=== PATIENT | male | born 1975 | race Caucasian/White ===

== ENCOUNTER → 2021-02-25 09:20 | Outpatient (BNVA) | payer OTHER, SELFPAY | PROVIDERS: Visit Provider Orthopaedic Surgery | DX: M25.571 Pain in right ankle and joints of right foot (principal) | CPT/HCPCS: 99202 ==

== ENCOUNTER 2022-12-10 13:12 | Outpatient (REF) | payer OTHER, SELFPAY ==
--- NOTE | ~2022-12-10 | XR_ITS ---
EXAMINATION: XR FOOT, RIGHT CLINICAL INFORMATION: Acute foot pain. COMPARISON: Right foot radiographs dated 12/27/2007. TECHNIQUE: AP, lateral, and oblique views of the right foot. FINDINGS: There is no acute fracture or dislocation. The tarsal bones are normally aligned. There is a small retrocalcaneal spur. Mild soft tissue swelling. XR/XR foot RT min 3V IMPRESSION: Mild soft tissue swelling and small degenerative retrocalcaneal spur. No acute fracture.
== END 2022-12-10 13:13 | disposition home or self-care (01) ==
LOC: HO.XRAY 13:12
PROVIDERS: PCP Student in an Organized Health Care Education/Training Program; Visit Provider Student in an Organized Health Care Education/Training Program
DX: M79.671 Pain in right foot (principal)
CPT/HCPCS: 73630

== ENCOUNTER → 2022-12-30 10:50 | Outpatient (BNVA) | payer OTHER, SELFPAY | PROVIDERS: PCP Student in an Organized Health Care Education/Training Program; Visit Provider Student in an Organized Health Care Education/Training Program | DX: M10.9 Gout, unspecified (principal) | CPT/HCPCS: 99202 ==

== ENCOUNTER 2022-12-30 12:05 | Outpatient (REF) | payer OTHER, SELFPAY ==
[2022-12-30 13:30] LABS: MANUAL DIFF FLAG NO
[2022-12-30 13:39] LABS: Basophils Percent Auto 0.7 % (0-2); Eosinophils Absolute Auto 0.1 X10*3/uL (0.0-0.4); Eosinophils Percent Auto 1.7 % (0-4); Hematocrit 44.7 % (42.0-52.0); Hemoglobin 15.1 g/dl (14.0-18.0); Imm Gran Abs Auto 0.01 X10*3/uL (0.00-0.03); Imm Gran Pct Auto 0.2 % (0.0-0.4); Lymphocytes Absolute Auto 1.9 X10*3/uL (1.2-4.9); Lymphocytes Percent Auto 33.3 % (20-40); Mean Corpuscular HGB Conc 33.8 g/dl (31.0-36.0); Mean Corpuscular Hemoglobin 28.7 pg (27.0-33.0); Mean Corpuscular Volume 84.8 fL (80.0-98.0); Mean Platelet Volume 10.8 fL (9.4-12.4); Monocytes Absolute Auto 0.7 X10*3/uL (0.1-1.2); Monocytes Percent Auto 11.2 % (2-11); Neutrophils Absolute Auto 3.1 x10*3/uL (2.0-8.3); Neutrophils Percent Auto 52.9 % (45-73); Platelet Count 261 X10*3/uL (160-400); Red Blood Count 5.27 X10*6/uL (4.60-5.80); Red Cell Distribution Width 12.3 % (11.0-16.0); White Blood Count 5.8 X10*3/uL (4.8-10.8)
[2022-12-30 13:50] LABS: Alanine Aminotransferase 31 U/L (0-40); Albumin Level 4.8 g/dL (3.5-5.0); Alkaline Phosphatase 65 U/L (39-117); Anion Gap 15 (12-20); Aspartate Amino Transferase 24 U/L (5-37); Bilirubin Total 0.7 mg/dL (0.0-1.0); Blood Urea Nitrogen 13 mg/dL (9-16); C Reactive Protein 0.38 mg/dL (< or = 0.50); Calcium 9.8 mg/dL (8.4-10.2); Carbon Dioxide 26 mmol/L (22-29); Chloride 104 mmol/L (96-108); Estimated Glomerular Filt Rate > 60; Glucose Random 95 mg/dL (60-115); Potassium 4.5 mmol/L (3.3-5.1); Sodium 140 mmol/L (135-145); Total Protein 7.4 g/dL (6.5-8.0); Uric Acid 6.4 mg/dL (3.4-7.0)
[2022-12-30 14:07] LABS: Appearance Urine Clear; Color Urine Yellow; Glucose Urine UA Negative (Negative); Leukocyte Esterase Urine Negative (Negative); Nitrite Urine Negative (Negative); PH 5.5 (5.0-9.0); Urine Blood Negative (Negative); Urine Ketones Negative (Negative); Urine Protein Negative (Neg-Trace)
[2022-12-30 14:16] LABS: Bacteria Urine None Seen (None Seen); Hyaline Casts Urine 0-2 /LPF (0-2); RBC Urine 0-2 /HPF (0-2); Squamous Epithelial Cell Urine 0-2 /HPF (0-2); WBC Urine 0-5 /HPF (0-5)
[2022-12-30 14:20] LABS: Erythrocyte Sedimentation Rate 13 MM/HR (0-15)
== END 2022-12-30 12:06 | disposition home or self-care (01) ==
LOC: HO.10HDL 12:05
PROVIDERS: Visit Provider Student in an Organized Health Care Education/Training Program
DX: M10.9 Gout, unspecified (principal)
CPT/HCPCS: 36415; 80053; 81001; 84550; 85025; 85652; 86140

== ENCOUNTER → 2023-02-23 08:08 | Outpatient (BNVA) | payer OTHER, SELFPAY | PROVIDERS: PCP Student in an Organized Health Care Education/Training Program; Visit Provider Student in an Organized Health Care Education/Training Program | DX: M10.9 Gout, unspecified (principal); Z79.899 Other long term (current) drug therapy | CPT/HCPCS: 99212 ==

== ENCOUNTER 2023-02-23 09:13 | Outpatient (REF) | payer OTHER, SELFPAY ==
[2023-02-23 11:00] LABS: Alanine Aminotransferase 29 U/L (0-40); Albumin Level 4.4 g/dL (3.5-5.0); Alkaline Phosphatase 51 U/L (39-117); Anion Gap 10 (12-20); Aspartate Amino Transferase 20 U/L (5-37); Bilirubin Total 0.5 mg/dL (0.0-1.0); Blood Urea Nitrogen 19 mg/dL (9-16); Calcium 9.5 mg/dL (8.4-10.2); Carbon Dioxide 27 mmol/L (22-29); Chloride 109 mmol/L (96-108); Estimated Glomerular Filt Rate > 60; Glucose Random 99 mg/dL (60-115); Potassium 4.9 mmol/L (3.3-5.1); Sodium 141 mmol/L (135-145); Total Protein 6.8 g/dL (6.5-8.0); Uric Acid 7.8 mg/dL (3.4-7.0)
== END 2023-02-23 09:14 | disposition home or self-care (01) ==
LOC: HO.10HDL 09:13
PROVIDERS: Visit Provider Student in an Organized Health Care Education/Training Program
DX: M10.9 Gout, unspecified (principal)
CPT/HCPCS: 36415; 80053; 84550

== ENCOUNTER 2023-06-01 11:37 | Outpatient (REF) | payer OTHER, SELFPAY ==
[2023-06-01 13:16] LABS: MANUAL DIFF FLAG NO
[2023-06-01 13:19] LABS: Basophils Percent Auto 0.5 % (0-2); Eosinophils Absolute Auto 0.1 X10*3/uL (0.0-0.4); Eosinophils Percent Auto 1.4 % (0-4); Hematocrit 47.3 % (42.0-52.0); Hemoglobin 16.3 g/dl (14.0-18.0); Imm Gran Abs Auto 0.02 X10*3/uL (0.00-0.03); Imm Gran Pct Auto 0.3 % (0.0-0.4); Lymphocytes Absolute Auto 2.5 X10*3/uL (1.2-4.9); Mean Corpuscular HGB Conc 34.5 g/dl (31.0-36.0); Mean Corpuscular Hemoglobin 29.6 pg (27.0-33.0); Mean Platelet Volume 10.6 fL (9.4-12.4); Monocytes Absolute Auto 0.6 X10*3/uL (0.1-1.2); Monocytes Percent Auto 9.2 % (2-11); Neutrophils Absolute Auto 3.2 x10*3/uL (2.0-8.3); Neutrophils Percent Auto 49.6 % (45-73); Platelet Count 240 X10*3/uL (160-400); Red Cell Distribution Width 12.2 % (11.0-16.0); White Blood Count 6.4 X10*3/uL (4.8-10.8)
[2023-06-01 14:00] LABS: Alanine Aminotransferase 30 U/L (0-40); Albumin Level 4.7 g/dL (3.5-5.0); Alkaline Phosphatase 58 U/L (39-117); Anion Gap 11 (12-20); Aspartate Amino Transferase 21 U/L (5-37); Bilirubin Total 0.5 mg/dL (0.0-1.0); Blood Urea Nitrogen 18 mg/dL (9-16); Calcium 9.5 mg/dL (8.4-10.2); Carbon Dioxide 26 mmol/L (22-29); Chloride 108 mmol/L (96-108); Estimated Glomerular Filt Rate > 60; Glucose Random 97 mg/dL (60-115); Potassium 4.5 mmol/L (3.3-5.1); Sodium 140 mmol/L (135-145); Total Protein 7.6 g/dL (6.5-8.0); Uric Acid 6.3 mg/dL (3.4-7.0)
== END 2023-06-01 11:38 | disposition home or self-care (01) ==
LOC: HO.10HDL 11:37
PROVIDERS: Visit Provider Student in an Organized Health Care Education/Training Program
DX: M10.9 Gout, unspecified (principal)
CPT/HCPCS: 36415; 80053; 84550; 85025

== ENCOUNTER 2023-06-02 08:51 | Outpatient (AMB) | payer OTHER, SELFPAY ==
--- NOTE | 2023-06-02 08:53 | MHC.OFFVIS ---
Intake Vital Signs 06/02/23 08:54 Height 5 ft 7 in Weight 214 lb 15.211 oz BMI 33.7 BP 122/74 Blood Pressure Location Rt brachial Position Sitting Pulse 61 Pulse Source Pulse Oximeter Temp 97.4 F Pulse Oximetry (%) 95 Intake Visit Reasons: Gout Intake Note: Pt seen today for gout follow up. Denies flare ups Atm Servicer Required: No Accompanied by: Self / Same As Patient Allergies No Known Allergies Allergy (Verified 06/02/23 08:56) Medication List - Last Reconciled 06/02/23 by Arturo Tarango MD allopurinol 200 mg (2 x 100 mg) PO DAILY colchicine (gout) Take 1 tab twice daily for 1 week then 1 tab daily HPI HPI Comments History of Present Illness Details 48-year-old male with gout returns for follow-up. Doing much better overall. Denies any gout flare-ups over the last 3 months. On allopurinol 200 mg daily and colchicine daily. States that he gets some pain in his right big toe worse with walking. Without swelling. Initial History: This is a 47-year-old male who presents for evaluation of gout. Condition started 3-4 years ago when patient noticed swelling of his right big toe. He would have 2. Attacks per year usually treated with a course of ibuprofen or prednisone. Over the last 2 months however he has had a persistent attack affecting his right ankle near the right medial malleolus as well as the right big toe. He received 2 courses of prednisone and multiple courses of ibuprofen without relief. He also gets intermittent pain and swelling of his right elbow. He has been on allopurinol 100 mg daily for years but was not taking it regularly. Over the last 3-4 months he has been taking allopurinol regularly. Denies any history of kidney stones. No known family history of gout. [facility] Medical History Carpal tunnel syndrome of left wrist Gout Surgical History History of carpal tunnel surgery Family History Mother No problems noted. Father No problems noted. 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[facility] [place], [place] Reports arthralgias Physical Exam Vital Signs: Last Vital Signs Temp 97.4 F 06/02/23 08:54 Pulse 61 06/02/23 08:54 BP 122/74 06/02/23 08:54 Pulse Ox 95 06/02/23 08:54 BMI result Body Mass Index 33.7 Const General: cooperative, healthy appearing and comfortable Nutritional Appearance: obese Orientation/consciousness: patient oriented x3 Limitations: no limitations HEENT Head: Yes normocephalic and Yes atraumatic Resp Effort & Inspection: normal respiratory effort and able to speak in complete sentences Cardio Rate: regular rate Rhythm: regular rhythm Neuro General: patient oriented x3 Extrem Other: Reduced right wrist extension, history of fracture years ago No active synovitis today Early bunion right foot, mildly tender to palpation Assessment & Plan Assessment & Plan (1) Gout: Code(s): M10.9 - Gout, unspecified Plan: This is a 48-year-old male with gout returns for follow-up. Doing well overall without gout flares. On allopurinol 200 mg daily and colchicine 0.6 mg daily. Uric acid 6.3, still not at target Increase allopurinol to 300 mg daily. Continue colchicine daily for 1 more month then colchicine 0.6 mg every other day Labs before next visit in 3 months (2) Bunion of great toe of right foot: Code(s): M21.611 - Bunion of right foot Plan: Worse with walking. I suggested that patient try wearing more comfortable shoes. If no improvement follow-up with Podiatry Plan I spent 26 minutes reviewing patient's chart, evaluating patient, ordering diagnostic workup, counseling patient and documenting in the chart Orders: Orders Comprehensive Met. Panel 3 Months M10.9 - Gout, unspecified Uric Acid 3 Months M10.9 - Gout, unspecified Complete Blood Count Auto Diff 3 Months M10.9 - Gout, unspecified Medications: New allopurinol 300 mg PO DAILY 90 tabs 1RF Discontinued allopurinol Discontinued Reason: Doctor's Order 200 mg (2 x 100 mg) PO DAILY 180 tabs 1RF Coding Level of Care Code Est Pt Level 4 (11370) Diagnoses Gout M10.9 Bunion of great toe of right foot M21.611
[2023-06-02 08:54] VITALS: BP 122/74; PULSE 61; TEMP 36.3; O2SAT 95; BMI 33.7
== END 2023-06-02 09:13 | disposition home or self-care (01) ==
PROVIDERS: PCP Student in an Organized Health Care Education/Training Program; Visit Provider Student in an Organized Health Care Education/Training Program
DX: M10.9 Gout, unspecified (principal); M21.611 Bunion of right foot
CPT/HCPCS: 99214

== ENCOUNTER → 2023-06-02 08:51 | Outpatient (BNVA) | payer OTHER, SELFPAY | PROVIDERS: PCP Student in an Organized Health Care Education/Training Program; Visit Provider Student in an Organized Health Care Education/Training Program | DX: M10.9 Gout, unspecified (principal); M21.611 Bunion of right foot; Z79.899 Other long term (current) drug therapy | CPT/HCPCS: 99212 ==

== ENCOUNTER 2023-09-03 10:35 | Outpatient (REF) | payer MEDICAID, SELFPAY ==
[2023-09-03 13:27] LABS: MANUAL DIFF FLAG NO
[2023-09-03 13:34] LABS: Basophils Percent Auto 0.6 % (0-2); Eosinophils Absolute Auto 0.1 X10*3/uL (0.0-0.4); Eosinophils Percent Auto 1.4 % (0-4); Hematocrit 45.6 % (42.0-52.0); Hemoglobin 15.9 g/dl (14.0-18.0); Imm Gran Abs Auto 0.02 X10*3/uL (0.00-0.03); Imm Gran Pct Auto 0.4 % (0.0-0.4); Lymphocytes Absolute Auto 2.1 X10*3/uL (1.2-4.9); Mean Corpuscular HGB Conc 34.9 g/dl (31.0-36.0); Mean Corpuscular Hemoglobin 29.5 pg (27.0-33.0); Mean Corpuscular Volume 84.6 fL (80.0-98.0); Monocytes Absolute Auto 0.5 X10*3/uL (0.1-1.2); Neutrophils Absolute Auto 2.3 x10*3/uL (2.0-8.3); Neutrophils Percent Auto 45.6 % (45-73); Platelet Count 261 X10*3/uL (160-400); Red Blood Count 5.39 X10*6/uL (4.60-5.80); White Blood Count 5.1 X10*3/uL (4.8-10.8)
[2023-09-03 14:11] LABS: Alanine Aminotransferase 43 U/L (0-40); Albumin Level 4.8 g/dL (3.5-5.0); Alkaline Phosphatase 56 U/L (39-117); Anion Gap 13 (12-20); Aspartate Amino Transferase 25 U/L (5-37); Bilirubin Total 0.6 mg/dL (0.0-1.0); Blood Urea Nitrogen 16 mg/dL (9-16); Calcium 9.7 mg/dL (8.4-10.2); Carbon Dioxide 26 mmol/L (22-29); Chloride 107 mmol/L (96-108); Estimated Glomerular Filt Rate > 60; Glucose Random 101 mg/dL (60-115); Potassium 4.5 mmol/L (3.3-5.1); Sodium 141 mmol/L (135-145); Total Protein 7.8 g/dL (6.5-8.0); Uric Acid 6.1 mg/dL (3.4-7.0)
== END 2023-09-03 10:36 | disposition home or self-care (01) ==
LOC: HO.10HDL 10:35
PROVIDERS: Visit Provider Student in an Organized Health Care Education/Training Program
DX: M10.9 Gout, unspecified (principal)
CPT/HCPCS: 36415; 80053; 84550; 85025

== ENCOUNTER 2023-09-06 09:13 | Outpatient (AMB) | payer MEDICAID, SELFPAY ==
[2023-09-06 09:15] VITALS: BP 128/86; PULSE 81; BMI 34.1
--- NOTE | 2023-09-06 09:15 | MHC.OFFVIS ---
Intake Vital Signs 09/06/23 09:15 Height 5 ft 7 in Weight 217 lb 13.067 oz BMI 34.1 BP 128/86 Blood Pressure Location Rt brachial Position Sitting Pulse 81 Pulse Source Pulse Oximeter Intake Visit Reasons: Gout Intake Note: Patient presents today for gout follow up. Reports increasing allopurinol to 300 mg daily decreasing colchicine to 0.6 mg every other day. Quality Facilitator Required: No Accompanied by: Self / Same As Patient Allergies No Known Allergies Allergy (Verified 09/06/23 09:16) Medication List - Last Reconciled 09/06/23 by Arturo Tarango MD allopurinol 300 mg PO DAILY colchicine Take 1 tab twice daily for 1 week then 1 tab daily HPI HPI Comments History of Present Illness Details 48-year-old male with gout returns for follow-up. Doing well overall, states that he has intermittent pain and dull ache in the bottom of his left foot. Not all the time. States that he wakes up in the morning with bilateral wrist stiffness, he puts his hands under cold water and it resolved in a few minutes. Has not had any gout flare-ups. He is on allopurinol 300 mg daily and colchicine every other day Initial History: This is a 47-year-old male who presents for evaluation of gout. Condition started 3-4 years ago when patient noticed swelling of his right big toe. He would have 2. Attacks per year usually treated with a course of ibuprofen or prednisone. Over the last 2 months however he has had a persistent attack affecting his right ankle near the right medial malleolus as well as the right big toe. He received 2 courses of prednisone and multiple courses of ibuprofen without relief. He also gets intermittent pain and swelling of his right elbow. He has been on allopurinol 100 mg daily for years but was not taking it regularly. Over the last 3-4 months he has been taking allopurinol regularly. Denies any history of kidney stones. No known family history of gout. [facility] Medical History Carpal tunnel syndrome of left wrist Gout Surgical History History of carpal tunnel surgery Family History Mother No problems noted. Father No problems noted. 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[facility] [employer] [facility] [place] Reports arthralgias Physical Exam Vital Signs: Last Vital Signs Pulse 81 09/06/23 09:15 BP 128/86 09/06/23 09:15 BMI result Body Mass Index 34.1 Const General: cooperative, healthy appearing and comfortable Nutritional Appearance: obese Orientation/consciousness: patient oriented x3 Limitations: no limitations HEENT Head: Yes normocephalic and Yes atraumatic Resp Effort & Inspection: normal respiratory effort and able to speak in complete sentences Cardio Rate: regular rate Rhythm: regular rhythm Neuro General: patient oriented x3 Extrem Other: Reduced right wrist extension, history of fracture years ago No active synovitis today Early bunion right foot, mildly tender to palpation Assessment & Plan Assessment & Plan (1) Gout: Code(s): M10.9 - Gout, unspecified Qualifiers: Gout site: multiple sites Gout etiology: idiopathic Chronicity: chronic Presence of tophus: without tophus Qualified Code(s): M1A.09X0 - Idiopathic chronic gout, multiple sites, without tophus (tophi) Plan: This is a 48-year-old male with gout returns for follow-up. Doing well overall without gout flares. On allopurinol 300 mg daily and colchicine 0.6 mg daily. Uric acid 6.1, almost at target. Patient has been on colchicine for more than 6 months now without gout flare-ups. Will discontinue colchicine Continue allopurinol 300 mg daily Labs before next visit in 3 months (2) Transaminitis: Code(s): R74.01 - Elevation of levels of liver transaminase levels Plan: Mild elevation of liver enzymes, unclear cause. Patient denies any recent illnesses, new medications or alcohol use. Will monitor. Plan I spent 26 minutes reviewing patient's chart, evaluating patient, ordering diagnostic workup, counseling patient and documenting in the chart Orders: Orders Comprehensive Met. Panel 3 Months M10.9 - Gout, unspecified Uric Acid 3 Months M10.9 - Gout, unspecified Medications: Discontinued colchicine Discontinued Reason: Doctor's Order Take 1 tab twice daily for 1 week then 1 tab daily 90 tabs 1RF Coding Level of Care Code Est Pt Level 4 (75378) Diagnoses Idiopathic chronic gout of multiple sites without tophus M1A.09X0 Gout site: multiple sites Gout etiology: idiopathic Chronicity: chronic Presence of tophus: without tophus Transaminitis R74.01
== END 2023-09-06 09:27 | disposition home or self-care (01) ==
PROVIDERS: PCP Student in an Organized Health Care Education/Training Program; Visit Provider Student in an Organized Health Care Education/Training Program
DX: M1A.09X0 Idiopathic chronic gout, multiple sites, without tophus (tophi) (principal); R74.01 Elevation of levels of liver transaminase levels
CPT/HCPCS: 99214

== ENCOUNTER → 2023-09-06 09:13 | Outpatient (BNVA) | payer OTHER, SELFPAY | PROVIDERS: PCP Student in an Organized Health Care Education/Training Program; Visit Provider Student in an Organized Health Care Education/Training Program | DX: M1A.09X0 Idiopathic chronic gout, multiple sites, without tophus (tophi) (principal); R74.01 Elevation of levels of liver transaminase levels | CPT/HCPCS: 99212 ==

== ENCOUNTER 2023-12-02 13:35 | Outpatient (REF) | payer MEDICAID, SELFPAY ==
[2023-12-02 15:04] LABS: Alanine Aminotransferase 36 U/L (0-40); Albumin Level 4.8 g/dL (3.5-5.0); Alkaline Phosphatase 63 U/L (39-117); Anion Gap 10 (12-20); Aspartate Amino Transferase 20 U/L (5-37); Bilirubin Total 0.5 mg/dL (0.0-1.0); Blood Urea Nitrogen 13 mg/dL (9-16); Calcium 9.8 mg/dL (8.4-10.2); Carbon Dioxide 28 mmol/L (22-29); Chloride 105 mmol/L (96-108); Estimated Glomerular Filt Rate > 60; Glucose Random 92 mg/dL (60-115); Potassium 4.4 mmol/L (3.3-5.1); Sodium 139 mmol/L (135-145); Total Protein 7.8 g/dL (6.5-8.0); Uric Acid 5.5 mg/dL (3.4-7.0)
== END 2023-12-02 13:36 | disposition home or self-care (01) ==
LOC: HO.LAB 13:35
PROVIDERS: PCP Student in an Organized Health Care Education/Training Program; Visit Provider Student in an Organized Health Care Education/Training Program
DX: M10.9 Gout, unspecified (principal)
CPT/HCPCS: 36415; 80053; 84550

== ENCOUNTER 2023-12-06 08:51 | Outpatient (AMB) | payer MEDICAID, SELFPAY ==
--- NOTE | 2023-12-06 08:57 | A.OFFVIS_ITS ---
Intake Vital Signs 12/06/23 09:02 Height 5 ft 7 in Weight 212 lb 8.41 oz BMI 33.3 BP 134/72 Blood Pressure Location Rt brachial Position Sitting Pulse 73 Pulse Source Pulse Oximeter Temp 97.8 F Temp Source Skin Pulse Oximetry (%) 96 Oxygen Delivery Method Room Air Intake Visit Reasons: Gout Intake Note: Patient last seen 09/06/23 presents today for follow up and test results. Reports left foot pain x 1 wk, has had prior episodes of pain that come and go. Furnishings Conservator Required: No Accompanied by: Self / Same As Patient Allergies No Known Allergies Allergy (Verified 12/06/23 08:57) Medication List - Last Reconciled 12/06/23 by Arturo Tarango MD allopurinol 300 mg PO DAILY HPI HPI Comments History of Present Illness Details 48-year-old male with gout returns for f ollow-up. Doing well overall, states that he gets intermittent dull achy pain in his left foot, starting from the 3rd toe going all the way to the 5th toe and the outer aspect of the foot as well as the bottom of the foot. Denied any swelling or redness. States that these episodes happen once every 1 or 2 months and last about 1 week. He would take colchicine for 2-3 days to prevent a potential gout flare-up. He is taking allopurinol 200 mg daily. States that recently has noticed that his left thumb is numb. Has history of carpal tunnel syndrome s/p release on the right hand. Is wondering whether he has it on the left Initial History: This is a 47-year-old male who presents for evaluation of gout. Condition started 3-4 years ago when patient noticed swelling of his right big toe. He would have 2. Attacks per year usually treated with a course of ibuprofen or prednisone. Over the last 2 months however he has had a persistent attack affecting his right ankle near the right medial malleolus as well as the right big toe. He received 2 courses of prednisone and multiple courses of ibuprofen without relief. He also gets intermittent pain and swelling of his right elbow. He has been on allopurinol 100 mg daily for years but was not taking it regularly. Over the last 3-4 months he has been taking allopurinol regularly. Denies any history of kidney stones. No known family history of gout. [facility] Medical History Carpal tunnel syndrome of left wrist Gout Surgical History History of carpal tunnel surgery Family History Mother No problems noted. Father No problems noted. 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[employer] Reports arthralgias and Reports numbness Neuro Reports numbness Physical Exam Vital Signs: Last Vital Signs Temp 97.8 F 12/06/23 09:02 Pulse 73 12/06/23 09:02 BP 134/72 12/06/23 09:02 Pulse Ox 96 12/06/23 09:02 Oxygen Delivery Method Room Air 12/06/23 09:02 BMI result Body Mass Index 33.3 Const General: cooperative, healthy appearing and comfortable Nutritional Appearance: obese Orientation/consciousness: patient oriented x3 Limitations: no limitations HEENT Head: Yes normocephalic and Yes atraumatic Resp Effort & Inspection: normal respiratory effort and able to speak in complete sentences Cardio Rate: regular rate Rhythm: regular rhythm Neuro General: patient oriented x3 Extrem Other: Reduced right wrist extension, history of fracture years ago No active synovitis today Early bunion right foot No swelling or erythema left foot Mild left 3rd and 4th MTP tenderness Negative Tinel sign on the left Assessment & Plan Assessment & Plan (1) Gout: Code(s): M10.9 - Gout, unspecified Qualifiers: Gout site: multiple sites Gout etiology: idiopathic Chronicity: chronic Presence of tophus: without tophus Qualified Code(s): M1A.09X0 - Idiopathic chronic gout, multiple sites, without tophus (tophi) Plan: This is a 48-year-old male with gout returns for follow-up. Doing well overall without gout flares. On allopurinol 200 mg daily, patient has been complaining of intermittent achy pain of the left foot. Seems less likely to be gout flare- ups. He uses colchicine every 1-2 months. As needed for those episodes. Uric acid level is 5.5. At target Continue with allopurinol 200 mg daily. Labs before next visit in 6 months (2) Thumb paresthesia, left: Code(s): R20.2 - Paresthesia of skin Plan: History of carpal tunnel s/p release on the right. Patient recently complaining of left thumb numbness. Will check EMG/NCV Plan I spent 26 minutes reviewing patient's chart, evaluating patient, ordering diagnostic workup, counseling patient and documenting in the chart Orders: Orders Uric Acid 6 Months M10.9 - Gout, unspecified Complete Blood Count Auto Diff 6 Months M10.9 - Gout, unspecified Comprehensive Met. Panel 6 Months M10.9 - Gout, unspecified NE electromyogram (EMG) Today R20.2 - Paresthesia of skin Medications: Refilled allopurinol 200 mg (2 x 100 mg) PO DAILY 180 tabs 1RF Discontinued allopurinol Discontinued Reason: Doctor's Order 300 mg PO DAILY 90 tabs 1RF Coding Level of Care Code Est Pt Level 4 (68509) Diagnoses Idiopathic chronic gout of multiple sites without tophus M1A.09X0 Gout site: multiple sites Gout etiology: idiopathic Chronicity: chronic Presence of tophus: without tophus Thumb paresthesia, left R20.2
[2023-12-06 09:02] VITALS: BP 134/72; PULSE 73; TEMP 36.6; O2SAT 96; BMI 33.3
== END 2023-12-06 09:24 | disposition home or self-care (01) ==
PROVIDERS: PCP Student in an Organized Health Care Education/Training Program; Referring Provider Student in an Organized Health Care Education/Training Program; Visit Provider Student in an Organized Health Care Education/Training Program
DX: M1A.09X0 Idiopathic chronic gout, multiple sites, without tophus (tophi) (principal); R20.2 Paresthesia of skin
CPT/HCPCS: 99214

== ENCOUNTER → 2023-12-06 08:51 | Outpatient (BNVA) | payer MEDICAID, SELFPAY | PROVIDERS: PCP Student in an Organized Health Care Education/Training Program; Visit Provider Student in an Organized Health Care Education/Training Program | DX: M1A.09X0 Idiopathic chronic gout, multiple sites, without tophus (tophi) (principal); R20.2 Paresthesia of skin | CPT/HCPCS: 99212 ==

== ENCOUNTER 2024-01-05 13:23 | Outpatient (REF) | payer MEDICAID, SELFPAY ==
--- NOTE | 2024-01-05 13:26 | EMG_ITS ---
Chief complaint: Numbness on base of left thumb, history of gout Reason for referral: Evaluate for Carpal Tunnel Syndrome Referred by: Dr. Tarango Procedure done: Left upper extremity NCS/EMG Precautions and/or limitations: None The limb temperature was monitored continuously and remained between 32-36 degrees C during the performance of the NCS. Nerve Conduction Studies Anti Sensory Summary Table ?Stim Site NR Onset (ms) Norm Onset (ms) Peak (ms) Norm Peak (ms) O-P Amp (?V) Norm O-P Amp Site1 Site2 Delta-0 (ms) Dist (cm) Giuseppe (m/s) Norm Giuseppe (m/s) Left Median Anti Sensory (2nd Digit) Wrist ? 2.1 2.6 <3.6 50.9 >10 Wrist 2nd Digit 2.1 14.0 67 Left Ulnar Anti Sensory (5th Digit) Wrist ? 2.0 2.7 <3.7 24.7 >15.0 Wrist 5th Digit 2.0 14.0 70 Motor Summary Table ?Stim Site NR Onset (ms) Norm Onset (ms) O-P Amp (mV) Norm O-P Amp iAmp (mV) Amp (1st) (%) Site1 Site2 Delta-0 (ms) Dist (cm) Giuseppe (m/s) Norm Giuseppe (m/s) Left Median Motor (Abd Poll Brev) Wrist ? 2.9 <3.9 7.3 >4.5 8.4 100.0 Elbow Wrist 3.9 24.0 62 >45 Elbow ? 6.8 6.1 7.1 83.6 Left Ulnar Motor (Abd Dig Minimi) Wrist ? 2.6 <3.0 11.2 >5 13.2 100.0 B Elbow Wrist 3.6 21.0 58 >45 B Elbow ? 6.2 11.3 13.6 100.9 A Elbow B Elbow 1.4 10.0 71 >45 A Elbow ? 7.6 11.3 13.6 100.9 Comparison Summary Table ?Stim Site NR Peak (ms) Norm Peak (ms) P-T Amp (?V) Site1 Site2 Delta-P (ms) Norm Delta (ms) Left Median/Radial Dig I Comparison (Digit 1 - 10cm) Median ? 2.3 <2.9 69.1 Median Radial -0.3 Radial ? 2.6 <2.8 62.5 EMG ?Side Muscle Nerve Root Ins Act Fibs Psw Amp Dur Poly Recrt Int Pat Comment Left 1stDorInt Ulnar C8-T1 Nml Nml Nml Nml Nml 0 Nml Complete Left FlexCarRad Median C6-7 Nml Nml Nml Nml Nml 0 Nml Complete Left Biceps Musculocut C5-6 Nml Nml Nml Nml Nml 0 Nml Complete Left Triceps Radial C6-7-8 Nml Nml Nml Nml Nml 0 Nml Complete Left Deltoid Axillary C5-6 Nml Nml Nml Nml Nml 0 Nml Complete FINDINGS: All motor and sensory nerves tested showed normal latencies, amplitudes and conduction velocities. Concentric needle EMG was performed in selected muscles of the left upper extremity. Study did not reveal signs of electric abnormalities as shown in the table below. IMPRESSION: 1. This is a normal study. 2. There is no electrodiagnostic evidence for median neuropathy, ulnar neuropathy, brachial plexopathy, or cervical radiculopathy. CLINICAL COMMENT: Advised to wear wrist splints at night. Thank you for your kind referral. Morelia Carpenter MD, HERNESTO Board Certified, [place] Board [employer] and Rehabilitation (ABPMR) Board Certified, [place] Board of Electrodiagnostic Medicine (ABEM) CODIN [id number] x 2 MTDD
== END 2024-01-05 13:24 | disposition home or self-care (01) ==
LOC: HO.NEURO 13:23
PROVIDERS: PCP Student in an Organized Health Care Education/Training Program; Visit Provider Student in an Organized Health Care Education/Training Program
DX: R20.2 Paresthesia of skin (principal)
CPT/HCPCS: 95886; 95909

== ENCOUNTER → 2024-01-05 13:26 | Outpatient (BNV) | payer MEDICAID, SELFPAY | PROVIDERS: PCP Student in an Organized Health Care Education/Training Program; Visit Provider Physical Medicine & Rehabilitation | DX: M79.645 Pain in left finger(s) (principal); R20.2 Paresthesia of skin | CPT/HCPCS: 95886; 95909 ==

== ENCOUNTER 2024-02-01 09:52 | Outpatient (REF) | payer MEDICAID, SELFPAY ==
[2024-02-01 15:19] LABS: Prostate Specific Antigen 0.56 ng/mL (<0.05-4.0)
[2024-02-01 15:22] LABS: Alanine Aminotransferase 38 U/L (0-40); Albumin Level 4.8 g/dL (3.5-5.0); Alkaline Phosphatase 59 U/L (39-117); Anion Gap 14 (12-20); Aspartate Amino Transferase 23 U/L (5-37); Bilirubin Direct 0.2 mg/dL (0.0-0.5); Bilirubin Total 0.7 mg/dL (0.0-1.0); Blood Urea Nitrogen 19 mg/dL (9-16); Calcium 10.1 mg/dL (8.4-10.2); Carbon Dioxide 25 mmol/L (22-29); Chloride 106 mmol/L (96-108); Cholesterol 210 mg/dL (<200); Estimated Glomerular Filt Rate > 60; Glucose Random 94 mg/dL (60-115); HDL Cholesterol 46 mg/dL (>40); LDL Cholesterol Calculated 142 mg/dL (<100); Potassium 4.4 mmol/L (3.3-5.1); Sodium 141 mmol/L (135-145); Triglycerides 110 mg/dL (<150); Uric Acid 7.4 mg/dL (3.4-7.0)
[2024-02-02 04:12] LABS: ~HepC Num1 0.12 S/CO (0.00-0.79); ~Hepatitis C Antibody Nonreactive (Nonreactive)
[2024-02-04 18:08] LABS: HIV RNA PCR Qn Copies Not Detected Copies/mL; HIV RNA PCR Qn Log Copies Not Detected Log cps/mL
== END 2024-02-01 09:53 | disposition home or self-care (01) ==
LOC: HO.CHCLDS 09:52
PROVIDERS: Visit Provider Student in an Organized Health Care Education/Training Program
DX: Z00.00 Encounter for general adult medical examination without abnormal findings (principal); M1A.0710 Idiopathic chronic gout, right ankle and foot, without tophus (tophi); I10 Essential (primary) hypertension
CPT/HCPCS: 36415; 80048; 80061; 80076; 84153; 84550; 86803; 87536; 87900

== ENCOUNTER 2024-06-02 10:34 | Outpatient (REF) | payer MEDICAID, SELFPAY ==
[2024-06-02 10:46] LABS: MANUAL DIFF FLAG NO
[2024-06-02 10:50] LABS: Basophils Percent Auto 0.5 % (0-2); Eosinophils Absolute Auto 0.1 X10*3/uL (0.0-0.4); Hematocrit 45.9 % (42.0-52.0); Hemoglobin 15.7 g/dl (14.0-18.0); Imm Gran Abs Auto 0.01 X10*3/uL (0.00-0.03); Imm Gran Pct Auto 0.2 % (0.0-0.4); Lymphocytes Absolute Auto 2.2 X10*3/uL (1.2-4.9); Lymphocytes Percent Auto 40.8 % (20-40); Mean Corpuscular HGB Conc 34.2 g/dl (31.0-36.0); Mean Corpuscular Hemoglobin 29.7 pg (27.0-33.0); Mean Corpuscular Volume 86.9 fL (80.0-98.0); Mean Platelet Volume 9.7 fL (9.4-12.4); Monocytes Absolute Auto 0.6 X10*3/uL (0.1-1.2); Monocytes Percent Auto 10.1 % (2-11); Neutrophils Absolute Auto 2.5 x10*3/uL (2.0-8.3); Neutrophils Percent Auto 46.4 % (45-73); Platelet Count 245 X10*3/uL (160-400); Red Blood Count 5.28 X10*6/uL (4.60-5.80); Red Cell Distribution Width 12.3 % (11.0-16.0); White Blood Count 5.5 X10*3/uL (4.8-10.8)
[2024-06-02 11:20] LABS: Alanine Aminotransferase 30 U/L (0-40); Albumin Level 4.7 g/dL (3.5-5.0); Alkaline Phosphatase 57 U/L (39-117); Anion Gap 11 (12-20); Aspartate Amino Transferase 20 U/L (5-37); Bilirubin Total 0.4 mg/dL (0.0-1.0); Blood Urea Nitrogen 16 mg/dL (9-16); Calcium 9.8 mg/dL (8.4-10.2); Carbon Dioxide 27 mmol/L (22-29); Chloride 107 mmol/L (96-108); Estimated Glomerular Filt Rate > 60; Glucose Random 103 mg/dL (60-115); Potassium 4.2 mmol/L (3.3-5.1); Sodium 141 mmol/L (135-145); Total Protein 7.6 g/dL (6.5-8.0); Uric Acid 5.9 mg/dL (3.4-7.0)
== END 2024-06-02 10:35 | disposition home or self-care (01) ==
LOC: HO.10HDL 10:34
PROVIDERS: Visit Provider Student in an Organized Health Care Education/Training Program
DX: M10.9 Gout, unspecified (principal)
CPT/HCPCS: 36415; 80053; 84550; 85025

== ENCOUNTER 2024-06-07 09:48 | Outpatient (AMB) | payer MEDICAID, SELFPAY ==
[2024-06-07 09:57] VITALS: BP 126/78; PULSE 64; O2SAT 99; BMI 32.7
--- NOTE | 2024-06-07 09:57 | A.OFFVIS_ITS ---
Vital Signs 06/07/24 09:57 Height 5 ft 7 in Weight 208 lb 8.917 oz BMI 32.7 BP 126/78 Blood Pressure Location Lt brachial Position Sitting Pulse 64 Pulse Source Pulse Oximeter Pulse Oximetry (%) 99 Oxygen Delivery Method Room Air Intake Visit Reasons: Gout Intake Note: Patient last seen by Doctor Arturo Ventura on 12/06/23. Presents today for Gout follow up and test results. Patient also complains of the gout in his right forefinger and middle finger today. Allergies No Known Allergies Allergy (Verified 06/07/24 09:58) Medication List - Last Reconciled 06/07/24 by Arturo Tarango MD allopurinol 200 mg (2 x 100 mg) PO DAILY colchicine 0.6 mg PO BID HPI Comments Details: 49-year-old male with gout returns for follow-up. He remains on allopurinol 200 mg daily. He states that he no longer has any feet pain. He gets pain in the right index and right middle finger PIP is. The pain is achy, associated with morning stiffness. No significant swelling. He takes colchicine occasionally for it but it does not help much. Initial History: This is a 47-year-old male who presents for evaluation of gout. Condition started 3-4 years ago when patient noticed swelling of his right big toe. He would have 2. Attacks per year usually treated with a course of ibuprofen or prednisone. Over the last 2 months however he has had a persistent attack affecting his right ankle near the right medial malleolus as well as the right big toe. He received 2 courses of prednisone and multiple courses of ibuprofen without relief. He also gets intermittent pain and swelling of his right elbow. He has been on allopurinol 100 mg daily for years but was not taking it regularly. Over the last 3-4 months he has been taking allopurinol regularly. Denies any history of kidney stones. No known family history of gout. [facility] Medical History Carpal tunnel syndrome of left wrist Gout Surgical History History of carpal tunnel surgery Family History Mother No problems noted. Father No problems noted. 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[facility] [place]ralgias Physical Exam Vital Signs: Last Vital Signs Pulse 64 06/07/24 09:57 BP 126/78 06/07/24 09:57 Pulse Ox 99 06/07/24 09:57 Oxygen Delivery Method Room Air 06/07/24 09:57 BMI result Body Mass Index 32.7 Const General: cooperative, healthy appearing and comfortable Nutritional Appearance: obese Orientation/consciousness: patient oriented x3 Limitations: no limitations HEENT Head: Yes normocephalic and Yes atraumatic Resp Effort & Inspection: normal respiratory effort and able to speak in complete sentences Cardio Rate: regular rate Rhythm: regular rhythm Neuro General: patient oriented x3 Extrem Other: Reduced right wrist extension, history of fracture years ago No active synovitis today Early bunion right foot Osteoarthritic changes of both hands with no active synovitis Assessment & Plan Assessment & Plan (1) Gout: Code(s): M10.9 - Gout, unspecified Category: Medical Qualifiers: Gout site: multiple sites Gout etiology: idiopathic Chronicity: chronic Presence of tophus: without tophus Qualified Code(s): M1A.09X0 - Idiopathic chronic gout, multiple sites, without tophus (tophi) Plan: This is a 49-year-old male with gout returns for follow-up. Doing well overall without gout flares. On allopurinol 200 mg daily, his complaints today are due to degenerative arthritis of the hands. Uric acid level is 5.9 mg at target however is uric acid few months ago was 7.4 which is above target. It may be a good idea to increase his allopurinol to 300 mg daily however we discussed today. I provided patient with a printout of a low purine diet. Patient will try to adhere to the diet as much as possible. If his uric acid level fluctuates above 6 next visit, I will increase his allopurinol For now keep allopurinol at 200 mg daily Labs before next visit in 6 months (2) Osteoarthritis of hands, bilateral: Code(s): M19.041 - Primary osteoarthritis, right hand; M19.042 - Primary osteoarthritis, left hand Category: Medical Plan: Discussed the nature of osteoarthritis and different treatment strategies. I suggested occupational therapy. Patient states symptoms are minimal and further is warranted at this time. Plan I spent 26 minutes reviewing patient's chart, evaluating patient, ordering diagnostic workup, counseling patient and documenting in the chart Orders: Orders Uric Acid 6 Months M1A.09X0 - Idiopathic chronic gout, multiple sites, without tophus (tophi) Comprehensive Met. Panel 6 Months M1A.09X0 - Idiopathic chronic gout, multiple sites, without tophus (tophi) Coding Level of Care Code Est Pt Level 4 (36643) Diagnoses Idiopathic chronic gout of multiple sites without tophus M1A.09X0 Gout site: multiple sites Gout etiology: idiopathic Chronicity: chronic Presence of tophus: without tophus Osteoarthritis of hands, bilateral M19.041; M19.042
== END 2024-06-07 10:16 | disposition home or self-care (01) ==
PROVIDERS: PCP Student in an Organized Health Care Education/Training Program; Visit Provider Student in an Organized Health Care Education/Training Program
DX: M1A.09X0 Idiopathic chronic gout, multiple sites, without tophus (tophi) (principal); M19.041 Primary osteoarthritis, right hand; M19.042 Primary osteoarthritis, left hand
CPT/HCPCS: 99214

== ENCOUNTER → 2024-06-07 09:48 | Outpatient (BNVA) | payer MEDICAID, SELFPAY | PROVIDERS: PCP Student in an Organized Health Care Education/Training Program; Visit Provider Student in an Organized Health Care Education/Training Program | DX: M1A.09X0 Idiopathic chronic gout, multiple sites, without tophus (tophi) (principal); M19.041 Primary osteoarthritis, right hand; M19.042 Primary osteoarthritis, left hand | CPT/HCPCS: 99212 ==

== ENCOUNTER 2024-12-27 12:34 | Outpatient (AMB) | payer MEDICAID, SELFPAY ==
--- NOTE | 2024-12-27 12:37 | MHC.OFFVIS ---
Vital Signs 12/27/24 12:39 Height 5 ft 7 in Weight 216 lb 7.903 oz BMI 33.9 BP 110/80 Blood Pressure Location Lt brachial Position Sitting Pulse 64 Pulse Source Pulse Oximeter Pulse Oximetry (%) 98 Oxygen Delivery Method Room Air Intake Visit Reasons: Gout Intake Note: Presents today for Gout follow up. Allergies No Known Allergies Allergy (Verified 12/27/24 12:38) HPI HPI Gout: Details: He has not had any gout attack in a year. He feels well. Twice a month he has alcoholic beverage with liquor and may be beer. His last gout attack was over a year ago involving his left foot. He continues to take allopurinol 200 mg daily. He reports compliance. His PCP performed arthrocentesis of left MTP a year and a half ago when he had an acute a gout attack. In the past he was treated for gout with a long prednisone course lasting 3 months but patient reports it was ineffective. [facility] Medical History Carpal tunnel syndrome of left wrist Gout Surgical History History of carpal tunnel surgery Family History Mother No problems noted. Father No problems noted. 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Const All systems reviewed & are unremarkable except as noted in HPI and below Physical Exam Vital Signs: Last Vital Signs Pulse 64 12/27/24 12:39 BP 110/80 12/27/24 12:39 Pulse Ox 98 12/27/24 12:39 Oxygen Delivery Method Room Air 12/27/24 12:39 BMI result Body Mass Index 33.9 Const Other: General: Comfortable CVS: RRR Respiratory: clear to auscultation bilaterally. Good respiratory effort Skin: No lesions seen MSK: Tender to palpate right 2nd and 3rd PIP and left wrist. No synovitis. Normal range of motion of upper extremities and lower extremities. Bilateral hallux valgus deformity left worse than right. Results Reviewed Results Reviewed: X-ray right foot 2022 reviewed. Assessment & Plan Assessment & Plan (1) Gout: Comment: Controlled on allopurinol 200 mg daily. Goal uric acid is less than 6. Last uric acid May 2024 was 5.9. He has polyarthralgias affecting his small joint in his hands. He reports in the past he has had a gout attack affecting his 2nd and 3rd finger, where he experiences most of his pain and stiffness in the morning. I am ordering bilateral hand x-rays x-rays for further evaluation. Code(s): M10.9 - Gout, unspecified Category: Medical Qualifiers: Gout site: multiple sites Gout etiology: idiopathic Chronicity: chronic Presence of tophus: without tophus Qualified Code(s): M1A.09X0 - Idiopathic chronic gout, multiple sites, without tophus (tophi) Plan: Continue allopurinol 200 mg daily Labs for disease and drug monitoring on allopurinol ordered X-ray bilateral hands ordered X-ray left foot report from urgent care in [facility] requested Requesting synovial fluid analysis from PCP's office of left MTP performed a year and a half ago Return to clinic in 6 months Orders: Orders Alanine Aminotransferase Today M1A.09X0 - Idiopathic chronic gout, multiple sites, without tophus (tophi) Aspartate Amino Transferase Today M1A.09X0 - Idiopathic chronic gout, multiple sites, without tophus (tophi) Creatinine Today M1A.09X0 - Idiopathic chronic gout, multiple sites, without tophus (tophi) Uric Acid Today M1A.09X0 - Idiopathic chronic gout, multiple sites, without tophus (tophi) XR hand LT min 3V Today M1A.09X0 - Idiopathic chronic gout, multiple sites, without tophus (tophi) XR hand RT min 3V Today M1A.09X0 - Idiopathic chronic gout, multiple sites, without tophus (tophi) Coding Level of Care Code Est Pt Level 4 (81245) Complex EM visit Add On G2211 Diagnoses Idiopathic chronic gout of multiple sites without tophus M1A.09X0 Gout site: multiple sites Gout etiology: idiopathic Chronicity: chronic Presence of tophus: without tophus
[2024-12-27 12:39] VITALS: BP 110/80; PULSE 64; O2SAT 98; BMI 33.9
--- OUTSIDE RECORDS SUMMARY | 2024-12-27 15:03 | XMS_ITS | Encounter Summary ---
Author Organization [employer] Address [address] [place] [address] Care Team Providers Care Oracle Iam Consultant Name Role Phone Letty Huston MD Primary Care Provider [phone] Encounter Details Date Type Department Care Team (Latest Contact Info) Description 11/01/2018 Abstract [facility] CONVERSIONS Dental, Provider, DDS Social History Tobacco Use Types Packs/Day Years Used Date Smoking Tobacco: Never Assessed Sex and Gender Information Value Date Recorded Sex Assigned at Male 07/27/2022 10:18 AM EDT Legal Sex Male 10:18 AM EDT Gender Identity Male 07/27/2022 10:18 AM EDT Sexual Orientation Straight 07/27/2022 10 :18 AM EDT documented as of this encounter Plan of Treatment Not on file documented as of this encounter Visit Diagnoses Not on filedocumented in this encounter Care Teams Oracle Iam Consultant Relationship Specialty Start Date End Date Letty Huston MD [address] [place] [phone] PCP - General Family Medicine 09/08/12 documented as of this encounter
--- OUTSIDE RECORDS SUMMARY | 2024-12-27 15:03 | XMS_ITS | Encounter Summary ---
Author Organization [employer] Address [address] [place] [address] Care Team Providers Care Mother Tester Name Role Phone Letty Huston MD Primary Care Provider [phone] Encounter Details Date Type Department Care Team ([facility] st Contact Info) Description 12/30/2022 Orders Only [facility] [address] [place], [place] [phone] Letty Huston MD [address] [place], [place] [phone] Social History Tobacco Use Types Packs/Day Years Used Date Smoking Tobacco: Former Cigarettes Alcohol Use Standard Drinks/Week Comments Never 0 (1 standard drink = 0.6 oz pur e alcohol) Sex and Gender Information Value Date Recorded Sex Assigned at Male 07/27/2022 10:18 AM EDT Legal Sex Male 10:18 AM EDT Gender Identity Male 07/27/2022 10:18 AM EDT Sexual Orientation Straight 07/27/2022 10 :18 AM EDT COVID-19 Exposure Response Date Recorded In the last 10 days, have yo u been in contact with someone who was confirmed or suspected to have Coronavirus/COVID-19? No / Unsure 12/22/2022 9:22 AM EDT documented as of this encounter Plan of Treatment Not on file documented as of this encounter Procedures Procedure Name Priority Date/Time Associated Diagnosis Comments URINALYSIS, COMPLETE Routine 12/30/2022 12:12 PM EDT CBC WITH AUTO DIFFERENTIAL Routine 12/30/2022 12:07 PM EDT SED RATE BY MODIFIED WESTERGREN Routine 12/30/2022 12:07 PM EDT C-REACTIVE PROTEIN Routine 12/30/2022 12 :02 PM EDT URIC ACID Routine 12/30/2022 12:02 PM EDT COMPREHENSIVE METABOLIC PANEL Routine 12/30/2022 12:02 PM EDT documented in this encounter Results * Urinalysis Complete (12/30/2022 12:12 PM EDT) Color Urine Yellow [facility] Appearance Urine Clear [facility] PH 5.5 5.0 - 9.0 [facility] Glucose Urine UA Negative Negative mg/dL [facility] Urine Blood Negative Negative [facility] Specific [place] - Urine 1.020 1.005 - 1.025 [facility] Urine Protein Negative Neg-Trace mg/dL [facility] Urine Ketones Negative Negative mg/dL [facility] Nitrite Urine Negative Negative [facility] Leukocyte Esterase Urine Negative Negative [facility] RBC Urine 0-2 0 - 2 /HPF [facility] Urine WBC 0-5 0 - 5 /HPF [facility] Urine Squamous Epithelial Cell 0-2 0 - 2 /HPF [facility] Urine Bacteria None Seen None Seen [facility] Hyaline Casts, Urine 0-2 0 - 2 /LPF [facility] 12/30/2022 12:1 2 PM EDT 12/30/2022 1:44 PM EDT us [facility] External Provider LAB URI NE ORDERABLES Final Result [facility] [address] [place] [phone] * Sed Rate by Modified W[place]gren (12/30/2022 12:07 PM EDT) Erythrocyte Sedimentation Rate 13 0 - 15 MM/HR [facility] Comment:Patients with polycy themia and many hemoglobin abnormalitiesmay have depressed sed rates whereas patients with anemiamay have elevated sed rates. 12/30/2022 12:0 7 PM EDT 12/30/2022 1:26 PM EDT us [facility] External Provider LAB BLO OD ORDERABLES Final Result [facility] [address] [place] [phone] * (ABNORMAL) CBC auto differential (12/30/2022 12:07 PM EDT) Pathologist [facility] White Blood Count 5.8 4.8 - 10.8 X10*3/uL [facility] Red Blood Count 5.27 4.60 - 5.80 X10*6/uL [facility] Hemoglobin 15.1 14.0 - 18.0 g/dl [facility] Hematocrit 44.7 42.0 - 52.0 % [facility] Mean Corpuscular Volume 84.8 80.0 - 98.0 fL [facility] Mean Corpuscular Hemoglobin 28.7 27.0 - 33.0 pg [facility] Mean Corpuscular HGB Conc 33.8 31.0 - 36.0 g/dl [facility] Red Cell Distribution Width 12.3 11.0 - 16.0 % [facility] Platelet Count 261 160 - 400 X10*3/uL [facility] Mean Platelet Volume 10.8 9.4 - 12.4 fL [facility] Neutrophils Percent Auto 52.9 45 - 73 % [facility] Imm Gran Pct Auto 0.2 0.0 - 0.4 % [facility] Lymphocytes Percent Auto 33.3 20 - 40 % [facility] Monocytes Percent Auto 11.2(H) 2 - 11 % [facility] Eosinophils Percent Auto 1.7 0 - 4 % [facility] Basophils Percent Auto 0.7 0 - 2 % [facility] NRBC Pct Auto 0.0 0.0 - 0.2 /100WBC [facility] Neutrophils Absolute Auto 3.1 2.0 - 8.3 x10*3/uL [facility] Imm Gran Abs Auto 0.01 0.00 - 0.03 X10*3/uL [facility] Lymphocytes Absolute Auto 1.9 1.2 - 4.9 X10*3/uL [facility] Monocytes Absolute Auto 0.7 0.1 - 1.2 X10*3/uL [facility] Eosinophils Absolute Auto 0.1 0.0 - 0.4 X10*3/uL [facility] Basophils Absolute Auto 0.0 0.0 - 0.2 X10*3/uL [facility] NRBC Abs Auto 0.000 0.0 - 0.012 X10*3/uL [facility] 12/30/2022 12:0 7 PM EDT 12/30/2022 1:26 PM EDT [facility] External Provider LAB BLO OD ORDERABLES Final Result Performing Organization Address City/[facility]/ZIP Co de Phone Number [facility] [address] [place] [phone] * C-reactive Protein (12/30/2022 12:02 PM EDT) C Reactive Protein 0.38 < or = 0.50 mg/dL [facility] 12/30/2022 12:0 2 PM EDT 12/30/2022 1:26 PM EDT [facility] External Provider LAB BLO OD ORDERABLES Final Result Performing Organization Address City/[facility]/ZIP Co de Phone Number [facility] [address] [place] [phone] * Uric acid (12/30/2022 12:02 PM EDT) Uric Acid 6.4 3.4 - 7.0 mg/dL [facility] 12/30/2022 12:0 2 PM EDT 12/30/2022 1:26 PM EDT [facility] External Provider LAB BLO OD ORDERABLES Final Result [facility] [address] [place] [phone] * Comprehensive Metabolic Panel (12/30/2022 12:02 PM EDT) Sodium 140 135 - 145 mmol/L [facility] Potassium 4.5 3.3 - 5.1 mmol/L [facility] Chloride 104 96 - 108 mmol/L [facility] Carbon Dioxide 26 22 - 29 mmol/L [facility] Anion Gap 15 12 - 20 [facility] Urea Nitrogen (BUN) 13 9 - 16 mg/dL [facility] Creatinine, Serum 0.87 0.5 - 1.4 mg/dL [facility] Estimated Glomerular Filt Rate >60 [facility] Comment:NOTE: For -Am erican individuals, multiply the result by 1.210.Chronic Kidney Disease: Estimated GFR < 60 mL/min/[id number] Kidney Disease: Estimated GFR < 15 mL/min/1.73m2 Glucose 95 60 - 115 mg/dL [facility] Calcium 9.8 8.4 - 10.2 mg/dL [facility] Bilirubin, Total 0.7 0.0 - 1.0 mg/dL [facility] Aspartate Amino Transferase 24 5 - 37 U/L [facility] Alanine Aminotransferase 31 0 - 40 U/L [facility] Total Protein 7.4 6.5 - 8.0 g/dL [facility] Albumin Level 4.8 3.5 - 5.0 g/dL [facility] Alkaline Phosphatase 65 39 - 117 U/L [facility] 12/30/2022 12:0 2 PM EDT 12/30/2022 1:26 PM EDT [facility] External Provider LAB BLO OD ORDERABLES Final Result [facility] [address] [place] [phone] documented in this encounter Visit Diagnoses Not on filedocumented in this encounter Care Teams Mother Tester Relationship Specialty Start Date End Date Letty Huston MD [address] [place] [phone] PCP - General Family Medicine 09/08/12 documented as of this encounter
--- OUTSIDE RECORDS SUMMARY | 2024-12-27 15:03 | XMS_ITS | Encounter Summary ---
Author Organization [employer] Address [address] [place] [address] [address] [place] [address] Care Team Providers Care Manufacturing Engineering Technician Name Role Phone Letty Huston MD Primary Care Provider [phone] Encounter Details Date Type Department Care Team (Late st Contact Info) Description 02/24/2023 [facility] Information Management [address] [place] [address] Letty Huston MD [address] [place], [place] [phone] Social History Tobacco Use Types Packs/Day Years [...] on filedocumented in this encounter Care Teams Manufacturing Engineering Technician Relationship Specialty Start Date End Date Letty Huston MD [address] [place], [place] [phone] PCP - General Family Medicine 09/08/12 documented as of this encounter
--- OUTSIDE RECORDS SUMMARY | 2024-12-27 15:03 | XMS_ITS | Clinical Summary ---
Author Organization [facility] Address [address] [facility] [address] [place] [address] Care Team Providers Care Airplane Electrical Repairer Name Role Phone Letty Huston MD Primary Care Provider [phone] Allergies No known active allergies Medications ibuprofen 800 MG tablet Take 1 tablet by mouth every 8 (eight) hours. 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 take 1 tablet (100MG) by oral route 2 times every day 60 tablet 11 02/04/2024 Active Active Problems Problem Noted Date Diagnosed Date Essential hypertension 02/26/2012 Gout 02/26/2012 Encounters Date Type Department Care Team Description 12/08/2024 Population Health Risk Score [facility] (C3) Department [address] [id number] Provider, Population Health Generic 11/22/2024 10:00 AM EST Office Visit [facility] [address] [place] [address] [place] Cisneros Dental calculus (Primary Dx) 11/09/2024 8:00 AM EST Office Visit [facility] [address] [place] [address] Waleska Bedoya DDS 10/24/2024 8:00 AM EST Office Visit [facility] [address] [place] [address] Waleska Bedoya DDS 10/19/2024 Orders Only [facility] [address] [place] [address] Letty Huston MD Encounter for screening for malignant neoplasm of colon (Primary Dx) from Last 3 Months Social History Tobacco Use Types Packs/Day Years Used Date Smoking Tobacco: Former Cigarettes Tobacco Cessation:Counseling Given: Not Answered Alcohol Use Standard Drinks/Week Comments Never 0 (1 standard drink = 0.6 oz pur e alcohol) Alcohol Answer Date Recorded Frequency of Alcohol Consumption Not on file 01/28/2024 Average Number of Drinks Not on file 024 Frequency of Binge Drinking Not on file 11/2023 Score 0 01/28/2024 Depression Answer Date Recorded Patient Health Questionnaire-9 Score 1 01/28/2024 Patient Health Questionnaire-9 Score 1 01/28/2024 Last PHQ-9: Questionnaire Data Not on file 0 01/28/2024 Housing Stability Answer Date Recorded What is your housing situation today? I have aileen alvarado 01/21/[address] you li ve. Do you have problems with any of the following? None of the above 01/21/2024 Food Insecurity Answer Date Recorded Within the past 12 months, y ou worried that your food would run out before you got money to buy more: Never True 01/21/2024 Within the past 12 months,th e food you bought just didn't last and you didn't have enough money to get more: Never True Transportation Answer Date Recorded In the past 12 months, has l ack of transportation kept you from medical appts, meetings, work or from getting things needed for daily living? No 01/21/2024 Utilities Answer Date Recorded In the past 12 months, has t he electric, gas, oil or water company threatened to shut off services in your home? No 01/21/2024 Depression Answer Date Recorded Patient Health Questionnaire-2 Score 0 01/28/2024 Sex and Gender Information Value Date Recorded Sex Assigned at Male 07/27/2022 10:18 AM EDT Legal Sex Male 10:18 AM EDT Gender Identity Male 07/27/2022 10:18 AM EDT Sexual Orientation Straight 07/27/2022 10 :18 AM EDT Last Filed Vital Signs Vital Sign Reading Time Taken Comments Blood Pressure 128/78 11/22/2024 10:02 AM EST Pulse 65 11/22/2024 10:02 AM EST Temperature 36.4 ??C (97.5 ??F) 01/28/2024 10:19 AM E DT Respiratory Rate 20 01/28/2024 10:19 AM EDT Oxygen Saturation 95% 01/28/2024 10:19 AM EDT Inhaled Oxygen Concentration - - Weight 94.5 kg (208 lb 6 oz) 01/28/2024 10:19 AM EDT Height 177.4 cm (5' 9.83 ) 01/28/2024 10:19 AM E DT Body Mass Index 30.04 01/28/2024 10:19 AM EDT Plan of Treatment Health Maintenance Due Date Last Done Comments CT Colonography 1976 Colonoscopy 1976 FIT 1976 FOBT 1976 HIV Screening 1976 Sigmoidoscopy 1976 Family Planning (PISQ) 02/28/1991 Hepatitis B Vaccines (1 of 3 - 19+ 3-dose series) 02/28/1995 DTaP/Tdap/Td Vaccines (2 - Td or Tdap) 02/20/2024 02/19/2014, 09/28/2007 COVID-19 Vaccine ( season) 2024 09/02/2021, 12/28/2020, 12/07/2020 Influenza Vaccine (#1) 2024 5, 06/26/2014, 06/19/2013, Additional history exists Alcohol/Substance Use Screening 01/27/2025 01/28/2024 Depression Screening 01/27/2025 01/28/2024, 01/28/20 24 SDOH Screening 01/27/2025 01/28/2024 Dental Oral Exam 05/23/2025 11/22/2024, 01/2019, 04/26/2018, Additional history exists Dental Prophylaxis 05/23/2025 11/22/2024, 0 11/01/2018, 04/26/2018, Additional history exists Tobacco Screening 11/22/2025 11/22/2024 Dental X-Ray: Bitewings 11/23/2025 11/22/19 25, 06/15/2024, 04/26/2018, Additional history exists Zoster Vaccines (1 of 2) 02/28/2026 Colorectal Cancer Screening 02/23/2027 FIT DNA/Cologuard 02/23/2027 02/24/2024 Dental X-Ray: Full Mouth 11/23/2027 11/22/2024, 06/27 Lipid Panel 01/31/2029 02/01/2024, 02/12/2021 RSV Patients and Patients Aged 60 years or older (1 - 1-dose 75+ series) 02/28/2051 Hepatitis C Screening Completed 02/01/2024 HIB Vaccines Aged Out No longer eligi ble based on patient's age to complete this topic HPV Vaccines Aged Out No longer eligi ble based on patient's age to complete this topic Hepatitis A Vaccines Aged Out No long er eligible based on patient's age to complete this topic IPV Vaccines Aged Out No longer eligi ble based on patient's age to complete this topic Meningococcal Vaccine Aged Out No kristopher haley eligible based on patient's age to complete this topic Pneumococcal Vaccine: Pediatrics (0 to 5 Years) and At-Risk Patients (6 to 49) Years) Aged Out No longer eligible based on patient's age to complete this topic RSV under 20 months Aged Out No longe r eligible based on patient's age to complete this topic Rotavirus Vaccines Aged Out No longer eligible based on patient's age to complete this topic Procedures Procedure Name Priority Date/Time Associated Diagnosis Comments COMPREHENSIVE PERIODONTAL EVALUATION - NEW OR ESTABLISHED PATIENT Routine 11/22/2024 10:00 AM EST ORAL HYGIENE INSTRUCTIONS Routine 11/22/2024 10:00 AM EST INTRAORAL - COMPLETE SERIES OF RADIOGRAPHIC IMAGES Routine 11/22/2024 10:00 AM EST CASE PRESENTATION, DETAILED AND EXTENSIVE TREATMENT PLANNING Routine 11/22/2024 10:00 AM EST PERIODIC ORAL EVALUATION - ESTABLISHED PATIENT Routine 11/22/2024 10:00 AM EST PROPHYLAXIS - ADULT Routine 11/22/2024 1 0:00 AM EST 19 SURGICAL PLACEMENT OF IMPLANT BODY - ENDOSTEAL IMPLANT Routine 11/22/2024 12:00 AM EST 30 SURGICAL PLACEMENT OF IMPLANT BODY - ENDOSTEAL IMPLANT Routine 11/22/2024 12:00 AM EST 13 GALLO METAL CROWN Routine 11/22/2024 12:00 AM EST 12 GALLO METAL CROWN Routine 11/22/2024 12:00 AM EST 6 GALLO METAL CROWN Routine 11/22/2024 1 2:00 AM EST 5 GALLO METAL CROWN Routine 11/22/2024 1 2:00 AM EST 4 GALLO METAL CROWN Routine 11/22/2024 1 2:00 AM EST 4 ROOT CANAL Routine 11/22/2024 12:00 AM EST 5 ROOT CANAL Routine 11/22/2024 12:00 AM EST 14 CROWN - PORCELAIN/CERAMIC Routine 11/09/2024 8:00 AM EST CROWN PREP Routine 10/24/2024 8:00 AM EST LAB COLOGUARD?? COLON CANCER SCREEN Routine 02/24/2024 12:15 PM EDT Encounter for screening for malignant neoplasm of colon HEPATITIS C AB W/REFL TO HCV RNA, QN, PCR Routine 02/01/2024 9:54 AM EDT PE (physical exam), annual LIPID PANEL, STANDARD Routine 02/01/2024 9:54 AM EDT Essential hypertension from Last 3 Months or Most Recently Relevant to Health Maintenance Results * Cologuard?? colon cancer screening (02/24/2024 12:15 PM EDT) Cologuard Result Negative Negative 03/01/20 24 5:40 PM EDT [facility] [facility] (CLIA #:[id number]) Comment: NEGATIVE TEST RESULT. A negative Cologuard result indicates a low likelihood that a colorectal cancer (CRC) or advanced adenoma (adenomatous polyps with more advanced pre-malignant features) ??is present. The chance that a person with a negative Cologuard test has a colorectal cancer is less than 1 in 1500 (negative predictive value >99.9%) or has an ??advanced adenoma is less than ??5.3% (negative predictive value 94.7%). These data are based on a prospective cross-sectional study of 10,000 individuals at average risk for colorectal cancer who were screened with both Cologuard and colonoscopy. (Hermes Carballo al, N Engl J Med 2014;370(14):1286- 1297) The normal value (reference range) for this assay is negative. COLOGUARD RE-SCREENING RECOMMENDATION: Periodic colorectal cancer screening is an important part of preventive healthcare for asymptomatic individuals at average risk for colorectal cancer. ??Following a negative Cologuard result, the [place] Cancer Society and U.S. Multi-Society Task Force screening guidelines recommend a Cologuard re-screening interval of 3 years. References: [place] [employer] Guideline for Colorectal Cancer Screening: https://www.cancer.org/cancer/mfmoe-rogonl-ldklqp/njmpztazh-bvalxndds-vczavdq/ac s-rec ommendations.html.; Rajendra DK, Alexi GOLDEN, Emily PolancoK, Colorectal Cancer Screening: Recommendations for Physicians and Patients from the U.S. Multi-Society Task Force on Colorectal Cancer Screening , Am J Gastroenterology 2017; 112:3618-2309. TEST DESCRIPTION: Composite algorithmic analysis of stool DNA-biomarkers with hemoglobin immunoassay. ?? Quantitative values of individual biomarkers are not reportable and are not associated with individual biomarker result reference ranges. Cologuard is intended for colorectal cancer screening of adults of either sex, 45 years or older, who are at average-risk for colorectal cancer (CRC). Cologuard has been approved for use by the U.S. FDA. The performance of Cologuard was established in a cross sectional study of average-risk adults aged 50-84. Cologuard performance in patients ages 45 to 49 years was estimated by sub-group analysis of near-age groups. Colonoscopies performed for a positive result may find as the most clinically significant lesion: colorectal cancer [4.0%], advanced adenoma (including sessile serrated polyps greater than or equal to 1cm diameter) [20%] or non- advanced adenoma [31%]; or no colorectal neoplasia [45%]. These estimates are derived from a prospective cross-sectional screening study of 10,000 individuals at average risk for colorectal cancer who were screened with both Cologuard and colonoscopy. (Hermes Dominguez, N Engl J Med 2014;370(14):8834-4612.) Cologuard may produce a false negative or false positive result (no colorectal cancer or precancerous polyp present at colonoscopy follow up). A negative Cologuard test result does not guarantee the absence of CRC or advanced adenoma (pre-cancer). The current Cologuard screening interval is every 3 years. ([place] [employer] Society and U.S. Multi-Society Task Force). Cologuard performance data in a 10,000 patient pivotal study using colonoscopy as the reference method can be accessed at the following location: www.[employer]/results. Additional description of the Cologuard test process, warnings and precautions can be found at www.Contextoolrd.com. Stool specimen (specimen) 02/24/2024 12:15 PM EDT 02/25/2024 1:42 PM EDT Letty Huston MD LAB MOLECULAR DIAGNOSTICS ORDERA BLES Final Result Performing Organization Address City/[facility]/ZIP Co de Phone Number [employer] (CLIA #:[id number]) [place] [address], * Hepatitis C Antibody with Reflex to HCV, RNA, Quantitative, Real-Time PCR (02/01/2024 9:54 AM EDT) Hepatitis C Antibody Nonreactive Nonreactive [facility] Comment:Antibodies to HCV no t detected; does not exclude early acuteHCV infection. Blood Venous blood specimen / Unknown 02/01/2024 9:54 AM EDT 02/01/2024 2:13 PM EDT Letty Huston MD LAB BLOOD ORDERABLES Final Resul t [facility] [address] [place], [place] [phone] * (ABNORMAL) Lipid Panel, Standard (02/01/2024 9:54 AM EDT) Triglycerides 110 <150 mg/dL [facility] Comment:Desirable Triglyceri de: less than 150 mg/dLBorderline High Triglyceride 150-199 mg/dLHigh Triglyceride: 200-499 mg/dLVery High Triglyceride: greater than or equal to 5OO mg/dL Cholesterol 210(H) <200 mg/dL [facility] Comment:Desirable Cholestero l: less than 200 mg/dLBorderline High Cholesterol: 200-239 mg/dLHigh Cholesterol: greater than 239 mg/dL LDL Cholesterol Calculated 142(H) <100 mg/dL [facility] Comment:Desirable LDL: less than 100 mg/dLNear Optimal/Above Optimal LDL: 110- 129 mg/dLBorderline High LDL: 130-159 mg/dLHigh LDL: 160-189 mg/dLVery High LDL: greater than or equal to 190 mg/dL HDL Cholesterol 46 >40 mg/dL [facility] Comment:Desirable HDL: great er than 40 mg/dL Note: This HDL assay may give artificially low results in patients with liver disease. Blood Venous blood specimen / Unknown 02/01/2024 9:54 AM EDT 02/01/2024 2:13 PM EDT us Letty Huston MD LAB BLOOD ORDERABLES Final Resul t [facility] [address] [place] [phone] from Last 3 Months or Most Recently Relevant to Health Maintenance Insurance [facility] C3 DENTAL[place] STAND ADULT Care Teams Airplane Electrical Repairer Relationship Specialty Start Date End Date Letty Huston MD [address] [place] [phone] PCP - General Family Medicine 09/08/12
== END 2024-12-27 14:46 | disposition home or self-care (01) ==
LOC: HO.RHES 12:35
PROVIDERS: PCP Student in an Organized Health Care Education/Training Program; Visit Provider Internal Medicine Rheumatology
DX: M1A.09X0 Idiopathic chronic gout, multiple sites, without tophus (tophi) (principal)
CPT/HCPCS: 99214

== ENCOUNTER → 2024-12-27 12:34 | Outpatient (BNVA) | payer MEDICAID, SELFPAY | PROVIDERS: PCP Student in an Organized Health Care Education/Training Program; Visit Provider Internal Medicine Rheumatology | DX: M1A.09X0 Idiopathic chronic gout, multiple sites, without tophus (tophi) (principal) | CPT/HCPCS: 99212 ==

== ENCOUNTER 2024-12-28 11:18 | Outpatient (REF) | payer MEDICAID, SELFPAY ==
--- NOTE | ~2024-12-28 | XR_ITS ---
CLINICAL HISTORY: M1A.09X0 - Idiopathic chronic gout, multiple sites, without tophus (tophi) 3 view left hand Comparison: None Findings: No fractures or dislocations. There are arthritic or posttraumatic changes in the radiocarpal space. No erosions. No radiopaque foreign body. IMPRESSION: 1. No acute findings This document has been electronically signed by: Adalberto Kelley MD on 12/29/2024 09:04:30
--- NOTE | ~2024-12-28 | XR_ITS ---
CLINICAL HISTORY: M1A.09X0 - Idiopathic chronic gout, multiple sites, without tophus (tophi) 3 view right hand Comparison: None Findings: Bones intact. No dislocations. There is loss of radiocarpal space possibly related to previous trauma or arthritis. No erosions. No radiopaque foreign body. IMPRESSION: 1. No acute findings This document has been electronically signed by: Adalberto Kelley MD on 12/29/2024 09:04:17
[2024-12-28 12:13] LABS: Alanine Aminotransferase 46 U/L (0-40); Aspartate Amino Transferase 33 U/L (5-37); Estimated Glomerular Filt Rate > 60; Uric Acid 6.2 mg/dL (3.4-7.0)
--- OUTSIDE RECORDS SUMMARY | 2024-12-28 12:35 | XMS_ITS | Clinical Summary ---
Author Organization [facility] Address [address] [facility] [address] [place] [address] Care Team Providers Care Die Repair Machinist Name Role Phone Letty Huston MD Primary Care Provider [phone] Allergies No known active allergies Medications ibuprofen [...] Team Description 12/08/2024 Population Health Risk Score [facility] (C3) Department [address] [phone] Provider, Population Health Generic 11/22/2024 10:00 AM EST Office Visit [facility] [address] [place] [address] [place] Cisneros Dental calculus (Primary Dx) 11/09/2024 8:00 AM EST Office Visit [facility] [address] [place] [address] Waleska Bedoya DDS 10/24/2024 8:00 AM EST Office Visit [facility] [address] [place] [address] Waleska Bedoya DDS 10/19/2024 Orders Only [facility] [address] [place] [address] Letty Huston MD Encounter for screening for [...] Procedure Name Priority Date/Time Associated Diagnosis Comments ALT Routine 12/28/2024 11:27 AM EDT Encounter for screening for malignant neoplasm of colon AST Routine 12/28/2024 11:27 AM EDT Encounter for screening for malignant neoplasm of colon URIC ACID Routine 12/28/2024 11:27 AM EDT Encounter for screening for malignant neoplasm of colon CREATININE, SERUM Routine 12/28/2024 11: 27 AM EDT Encounter for screening for malignant neoplasm of colon COMPREHENSIVE PERIODONTAL EVALUATION - NEW OR ESTABLISHED [...] Recently Relevant to Health Maintenance Results * Creatinine, Serum (12/28/2024 11:27 AM EDT) Creatinine, Serum 0.80 0.5 - 1.4 mg/dL [facility] Estimated Glomerular Filt Rate >60 [facility] Comment:Chronic Kidney Disea se: Estimated GFR < 60 mL/min/1.10a4Azawxc Kidney Disease: Estimated GFR < 15 mL/min/1.73m2 12/28/2024 11:2 7 AM EDT 12/28/2024 11:27 AM EDT us Generic External Data Provider LAB BLOOD ORDERAB LES Final Result Performing Organization Address [facility] Co de Phone Number [facility] [address] [place] [phone] * Uric acid (12/28/2024 11:27 AM EDT) Uric Acid 6.2 3.4 - 7.0 mg/dL [facility] 12/28/2024 11:2 7 AM EDT 12/28/2024 11:27 AM EDT us Generic External Data Provider LAB BLOOD ORDERAB LES Final Result Performing Organization Address [facility] Co de Phone Number [facility] [address] [place] [phone] * (ABNORMAL) ALT (12/28/2024 11:27 AM EDT) Alanine Aminotransferase 46(H) 0 - 40 U/L [facility] 12/28/2024 11:2 7 AM EDT 12/28/2024 11:27 AM EDT Generic External Data Provider LAB BLOOD ORDERAB LES Final Result Performing Organization Address [facility] de Phone Number [facility] [address] [place] [phone] * AST (12/28/2024 11:27 AM EDT) Aspartate Amino Transferase 33 5 - 37 U/L [facility] 12/28/2024 11:2 7 AM EDT 12/28/2024 11:27 AM EDT us Generic External Data Provider LAB BLOOD ORDERAB LES Final Result [facility] [address] [place] [phone] * Cologuard?? colon cancer screening (02/24/2024 12:15 PM EDT) Cologuard Result Negative Negative 03/01/20 5:40 PM EDT [facility] (CLIA #:[id number]) Comment: NEGATIVE TEST RESULT. A negative Cologuard [...] screened with both Cologuard and colonoscopy. (Hermes T. et al, N Engl J Med 2014;370(14):1286- 1297) The normal value (reference range) for this assay is negative. COLOGUARD RE-SCREENING RECOMMENDATION: Periodic colorectal cancer screening is an important part of preventive healthcare for asymptomatic individuals at average risk for colorectal cancer. ??Following a negative Cologuard result, the [place] Cancer Society and U.S. Multi-Society Task Force screening guidelines recommend a Cologuard re-screening interval of 3 years. References: [place] [employer] Guideline for Colorectal Cancer Screening: https://www.cancer.org/cancer/bywpk-qqzyxz-vaelzl/wbpuoygww-ojaughmmk-ixyryyv/ac s-rec ommendations.html.; Rajendra ENRIQUEZ, Alexi GOLDEN, Emily ROMERO, Colorectal Cancer Screening: Recommendations for Physicians and Patients from the U.S. Multi-Society Task Force on Colorectal Cancer Screening , Am J Gastroenterology 2017; 112:1229-5474. TEST DESCRIPTION: Composite algorithmic analysis of stool [...] screened with both Cologuard and colonoscopy. (Hermes Khoury et al, N Engl J Med 2014;370(14):4536-8511.) Cologuard may produce a false negative or false positive result (no colorectal cancer or precancerous polyp present at colonoscopy follow up). A negative Cologuard test result does not guarantee the absence of CRC or advanced adenoma (pre-cancer). The current Cologuard screening interval is every 3 years. ([place] Cancer Society and U.S. Multi-Society Task Force). Cologuard performance data in a 10,000 patient pivotal study using colonoscopy as the reference method can be accessed at the following location: www.[employer]/results. Additional description of the Cologuard test process, warnings and precautions can be found at www.sezmird.com. Stool specimen (specimen) 02/24/2024 12:15 PM EDT 02/25/2024 1:42 PM EDT us Letty Huston MD LAB MOLECULAR DIAGNOSTICS JIMMY MENDOZA Final Result [facility] (CLIA #:[id number]) [place] [address], * Hepatitis C Antibody with Reflex to HCV, RNA, Quantitative, Real-Time PCR (02/01/2024 9:54 AM EDT) Hepatitis C Antibody Nonreactive Nonreactive [facility] Comment:Antibodies to HCV no t detected; does not exclude early acuteHCV infection. Blood Venous blood specimen / Unknown 02/01/2024 9:54 AM EDT 02/01/2024 2:13 PM EDT us Letty Huston MD LAB BLOOD ORDERABLES Final Resul t [facility] [address] [place] [phone] * (ABNORMAL) Lipid Panel, Standard (02/01/2024 9:54 AM EDT) Triglycerides 110 <150 mg/dL [facility] Comment:Desirable Triglyceri de: less than 150 mg/dLBorderline High Triglyceride 150-199 mg/dLHigh Triglyceride: 200-499 mg/dLVery High Triglyceride: greater than or equal to 5OO mg/dL Cholesterol 210(H) <200 mg/dL [facility] Comment:Desirable Cholestero l: less than 200 mg/dLBorderline High Cholesterol: 200-239 mg/dLHigh Cholesterol: greater than 239 mg/dL LDL Cholesterol Calculated 142(H) <100 mg/dL [facility] Comment:Desirable LDL: less than 100 mg/dLNear Optimal/Above Optimal LDL: 110- 129 mg/dLBorderline High LDL: 130-159 mg/dLHigh LDL: 160-189 mg/dLVery High LDL: greater than or equal to 190 mg/dL HDL Cholesterol 46 >40 mg/dL [facility] Comment:Desirable HDL: great er than 40 mg/dL Note: This HDL assay may give artificially low results in patients with liver disease. Blood Venous blood specimen / Unknown 02/01/2024 9:54 AM EDT 02/01/2024 2:13 PM EDT us Letty Huston MD LAB BLOOD ORDERABLES Final Resul t [facility] [address] [place] [phone] from Last 3 Months or Most Recently Relevant to Health Maintenance Insurance [facility] C3 DENTAL-[facility] MEDICAID STAND ADULT Care Teams Die Repair Machinist Relationship Specialty Start Date End Date Letty Huston MD [address] [place] [phone] PCP - General Family Medicine 09/08/12
--- OUTSIDE RECORDS SUMMARY | 2024-12-28 12:35 | XMS_ITS | Encounter Summary ---
Author Organization [employer] Address [address] [facility] [address] [place] [address] Care Team Providers Care Manager Strategic Marketing Name Role Phone Letty Huston MD Primary Care Provider [phone] Encounter Details Date Type Department Care Team (Latest Contact Info) Description 11/01/[address] [facility] CONVERSIONS Dental, Provider, DDS Social History Tobacco [...] on filedocumented in this encounter Care Teams Manager Strategic Marketing Relationship Specialty Start Date End Date Letty Huston MD [address] [place] [phone] PCP - General Family Medicine 09/08/12 documented as of this encounter
--- OUTSIDE RECORDS SUMMARY | 2024-12-28 12:36 | XMS_ITS | Encounter Summary ---
Author Organization [employer] Address [address] [facility] 7t [place] [address] Care Team Providers Care Flight Test Supervisor Name Role Phone Letty Huston MD Primary Care Provider [phone] Encounter Details Date Type Department Care Team ([facility] st Contact Info) Description 12/30/2022 Orders Only [facility] [address] [place], [place] [phone] Letty Huston MD [address], [place] [phone] Social History Tobacco Use Types Packs/Day Years [...] (12/30/2022 12:12 PM EDT) Color Urine Yellow [facility] Appearance Urine Clear [facility] PH 5.5 5.0 - 9.0 [facility] Glucose Urine UA Negative Negative mg/dL [facility] Urine Blood Negative Negative [facility] Specific [place] - Urine 1.020 1.005 - 1.025 [facility] Urine Protein Negative Neg-Trace mg/dL [facility] Urine Ketones Negative Negative mg/dL [facility] Nitrite Urine Negative Negative [facility] Leukocyte Esterase Urine Negative Negative [facility] RBC Urine 0-2 0 - 2 /HPF [facility] Urine WBC 0-5 0 - 5 /HPF [facility] Urine Squamous Epithelial Cell 0-2 0 - 2 /HPF [facility] Urine Bacteria None Seen None Seen [facility] Hyaline Casts, Urine 0-2 0 - 2 /LPF [facility] 12/30/2022 12:1 2 PM EDT 12/30/2022 1:44 PM EDT us [facility] External Provider LAB URI NE ORDERABLES Final Result [facility] [address] [place] [phone] * Sed Rate by Modified Westergren (12/30/2022 12:07 PM EDT) Erythrocyte Sedimentation Rate 13 0 - 15 MM/HR [facility] Comment:Patients with polycy themia and many hemoglobin abnormalitiesmay have depressed sed rates whereas patients with anemiamay have elevated sed rates. 12/30/2022 12:0 7 PM EDT 12/30/2022 1:26 PM EDT us [facility] External Provider LAB BLO OD ORDERABLES Final Result [facility] [address] [place] [address] [phone] * (ABNORMAL) CBC auto differential (12/30/2022 12:07 PM EDT) Pathologist [facility] White Blood Count 5.8 4.8 - 10.8 X10*3/uL [facility] Red Blood Count 5.27 4.60 - 5.80 X10*6/uL [facility] Hemoglobin 15.1 14.0 - 18.0 g/dl [facility] Hematocrit 44.7 42.0 - 52.0 % [facility] Mean Corpuscular Volume 84.8 80.0 - 98.0 fL [facility] Mean Corpuscular Hemoglobin 28.7 27.0 - 33.0 pg [facility] Mean Corpuscular HGB Conc 33.8 31.0 - 36.0 g/dl [facility] Red Cell Distribution Width 12.3 11.0 - 16.0 % [facility] Platelet Count 261 160 - 400 X10*3/uL [facility] Mean Platelet Volume 10.8 9.4 - 12.4 fL [facility] Neutrophils Percent Auto 52.9 45 - 73 % [facility] Imm Gran Pct Auto 0.2 0.0 - 0.4 % [facility] Lymphocytes Percent Auto 33.3 20 - 40 % [facility] Monocytes Percent Auto 11.2(H) 2 - 11 % [facility] Eosinophils Percent Auto 1.7 0 - 4 % [facility] Basophils Percent Auto 0.7 0 - 2 % [facility] NRBC Pct Auto 0.0 0.0 - 0.2 /100WBC [facility] Neutrophils Absolute Auto 3.1 2.0 - 8.3 x10*3/uL [facility] Imm Gran Abs Auto 0.01 0.00 - 0.03 X10*3/uL [facility] Lymphocytes Absolute Auto 1.9 1.2 - 4.9 X10*3/uL [facility] Monocytes Absolute Auto 0.7 0.1 - 1.2 X10*3/uL [facility] Eosinophils Absolute Auto 0.1 0.0 - 0.4 X10*3/uL [facility] Basophils Absolute Auto 0.0 0.0 - 0.2 X10*3/uL [facility] NRBC Abs Auto 0.000 0.0 - 0.012 X10*3/uL [facility] 12/30/2022 12:0 7 PM EDT 12/30/2022 1:26 PM EDT [facility] External Provider LAB BLO OD ORDERABLES Final Result Performing Organization Address City/[facility]/ZIP Co de Phone Number [facility] [address] [place] [phone] * C-reactive Protein (12/30/2022 12:02 PM EDT) C Reactive Protein 0.38 < or = 0.50 mg/dL [facility] 12/30/2022 12:0 2 PM EDT 12/30/2022 1:26 PM EDT [facility] External Provider LAB BLO OD ORDERABLES Final Result Performing Organization Address City/[facility]/ZIP Co de Phone Number [facility] [address] [place] [phone] * Uric acid (12/30/2022 12:02 PM EDT) Uric Acid 6.4 3.4 - 7.0 mg/dL [facility] 12/30/2022 12:0 2 PM EDT 12/30/2022 1:26 PM EDT [facility] External Provider LAB BLO OD ORDERABLES Final Result [facility] [address] [place] [phone] * Comprehensive Metabolic Panel (12/30/2022 12:02 PM EDT) Sodium 140 135 - 145 mmol/L [facility] Potassium 4.5 3.3 - 5.1 mmol/L [facility] Chloride 104 96 - 108 mmol/L [facility] Carbon Dioxide 26 22 - 29 mmol/L [facility] Anion Gap 15 12 - 20 [facility] Urea Nitrogen (BUN) 13 9 - 16 mg/dL [facility] Creatinine, Serum 0.87 0.5 - 1.4 mg/dL [facility] Estimated Glomerular Filt Rate >60 [facility] Comment:NOTE: For -Am erican individuals, multiply the result by 1.210.Chronic Kidney Disease: Estimated GFR < 60 mL/min/[id number] Kidney Disease: Estimated GFR < 15 mL/min/1.73m2 Glucose 95 60 - 115 mg/dL [facility] Calcium 9.8 8.4 - 10.2 mg/dL [facility] Bilirubin, Total 0.7 0.0 - 1.0 mg/dL [facility] Aspartate Amino Transferase 24 5 - 37 U/L [facility] Alanine Aminotransferase 31 0 - 40 U/L [facility] Total Protein 7.4 6.5 - 8.0 g/dL [facility] Albumin Level 4.8 3.5 - 5.0 g/dL [facility] Alkaline Phosphatase 65 39 - 117 U/L [facility] 12/30/2022 12:0 2 PM EDT 12/30/2022 1:26 PM EDT [facility] External Provider LAB BLO OD ORDERABLES Final Result [facility] [address] [place] [phone] documented in this encounter Visit Diagnoses Not on filedocumented in this encounter Care Teams Flight Test Supervisor Relationship Specialty Start Date End Date Letty Huston MD [address] [place] [phone] PCP - General Family Medicine 09/08/12 documented as of this encounter
--- OUTSIDE RECORDS SUMMARY | 2024-12-28 12:36 | XMS_ITS | Encounter Summary ---
Author Organization [employer] Address [address] [place] [address] 7t [place] [address] Care Team Providers Care Polymer Engineer Name Role Phone Letty Huston MD Primary Care Provider [phone] Encounter Details Date Type Department Care Team (Late st Contact Info) Description 02/24/2023 [facility] Information Management [address] [place] [address] Letty Huston MD [address] [place], [place] [phone] Social History Tobacco Use Types Packs/Day Years [...] on filedocumented in this encounter Care Teams Polymer Engineer Relationship Specialty Start Date End Date Letty Huston MD [address] [place], [place] [phone] PCP - General Family Medicine 09/08/12 documented as of this encounter
== END 2024-12-28 11:19 | disposition home or self-care (01) ==
LOC: HO.LAB 11:18
PROVIDERS: PCP Student in an Organized Health Care Education/Training Program; Visit Provider Internal Medicine Rheumatology
DX: M1A.09X0 Idiopathic chronic gout, multiple sites, without tophus (tophi) (principal)
CPT/HCPCS: 36415; 73130; 82565; 84450; 84460; 84550

== ENCOUNTER → 2024-12-28 11:29 | Outpatient (BNV) | payer MEDICAID, SELFPAY | PROVIDERS: PCP Student in an Organized Health Care Education/Training Program; Visit Provider Specialist | DX: M1A.09X0 Idiopathic chronic gout, multiple sites, without tophus (tophi) (principal) | CPT/HCPCS: 73130 ==

== ENCOUNTER 2025-02-22 09:38 | Outpatient (REF) | payer MEDICAID, SELFPAY ==
--- OUTSIDE RECORDS SUMMARY | 2025-02-22 09:58 | XMS_ITS | Encounter Summary ---
Author Organization [employer] Address [address] [facility] [address] [place] [address] Care Team Providers Care Battery Container Finishing Hand Name Role Phone Letty Huston MD Primary Care Provider [phone] Reason for Visit * Reason Comments Annual Exam Encounter Details Date Type Department Care Team ([facility] st Contact Info) Description 02/21/2025 10:15 AM EDT Office Visit [facility] MED [facility] PED[facility] [address] [place], [place] [phone] Letty Huston MD [address] [place] [address] Essential hypertension (Primary Dx); Dietary counseling; Exercise counseling; Hypercholesteremia; Chronic gout of right foot, unspecified cause; Encounter for annual wellness visit Social History Tobacco Use Types Packs/Day Years [...] Answer Date Recorded Patient Health Questionnaire-9 Score 0 02/21/2025 Patient Health Questionnaire-9 Score 0 02/21/2025 Last PHQ-9: Questionnaire Data Not on file 0 02/21/2025 Housing Stability Answer Date Recorded What is [...] Date Recorded Patient Health Questionnaire-2 Score 0 02/21/2025 Internet Access Answer Date Recorded Internet Access Q1 No 01/10/2025 Internet Access Q2 I do not want or need it 12/26 Sex and Gender Information Value Date Recorded Sex Assigned at Male 07/27/2022 10:18 AM EDT Legal Sex Male 10:18 AM EDT Gender Identity Male 07/27/2022 10:18 AM EDT Sexual Orientation Straight 07/27/2022 10 :18 AM EDT documented as of this encounter Last Filed Vital Signs Vital Sign Reading Time Taken Comments Blood Pressure 131/89 02/21/2025 10:21 AM EDT Pulse 78 02/21/2025 10:21 AM EDT Temperature 36.6 ??C (97.9 ??F) 02/21/2025 10:21 AM E DT Respiratory Rate 18 02/21/2025 10:21 AM EDT Oxygen Saturation - - Inhaled Oxygen Concentration - - Weight 95.7 kg (211 lb) 02/21/2025 10:21 AM EDT Height 176.5 cm (5' 9.5 ) 02/21/2025 10:21 AM ED T Body Mass Index 30.71 02/21/2025 10:21 AM EDT documented in this encounter Functional Status * Over the past 2 weeks, how often have you been bothered by any of the following problems? Question Answer Date of Assessment Author Patient Health Questionnaire -2 Score 0 02/21/2025 10:22 AM EDT Delia Mcdonough MA * Little interest or pleasure in doing things Answer Date of Assessment Author Not at all 02/21/2025 10:22 AM Stefani Smith [place] * Feeling down, depressed, or hopeless Answer Date of Assessment Author Not at all 02/21/2025 10:22 AM Stefani Smith [place] * Trouble falling or staying asleep, or sleeping too much Answer Date of Assessment Author Not at all 02/21/2025 10:22 AM Stefani Smith MA * Feeling tired or having little energy Answer Date of Assessment Author Not at all 02/21/2025 10:22 AM Stefani Smith MA * Poor appetite or overeating Answer Date of Assessment Author Not at all 02/21/2025 10:22 AM Stefani Smith MA * Feeling bad about yourself - or that you are a failure or have let yourself or your family down Answer Date of Assessment Author Not at all 02/21/2025 10:22 AM Stefani Smith MA * Trouble concentrating on things, such as reading the newspaper or watching television Answer Date of Assessment Author Not at all 02/21/2025 10:22 AM Stefani Smith MA * Moving or speaking so slowly that other people could have noticed? Or the opposite - being so fidgety or restless that you have been moving around a lot more than usual. Answer Date of Assessment Author Not at all 02/21/2025 10:22 AM Stefani Smith MA * Thoughts that you would be better off or hurting yourself in some way Answer Date of Assessment Author Not at all 02/21/2025 10:22 AM Stefani Smith MA * Patient Health Questionnaire-9 Score Answer Date of Assessment Author 0 02/21/2025 10:22 AM Stefani Smith MA documented as of this encounter Progress Notes * Letty Huston MD - 02/21/2025 10:15 AM EDT Subjective Patient ID: Jordan Gomez is a 49 y.o. male who presents for Annual Exam. Hypertension This is a chronic problem. The current episode started more than 1 year ago. The problem is controlled. Risk factors for coronary artery disease include obesity and male gender. Past treatments include nothing. There are no compliance problems. Review of Systems Constitutional: Negative. Respiratory: Negative. Cardiovascular: Negative. Gastrointestinal: Negative. Genitourinary: Negative. Objective Physical Exam Constitutional: Appearance: Normal appearance. HENT: Head: Normocephalic and atraumatic. Right Ear: Tympanic membrane normal. Left Ear: Tympanic membrane normal. Mouth/Throat: Mouth: Mucous membranes are moist. Eyes: Pupils: Pupils are equal, round, and reactive to light. Cardiovascular: Rate and Rhythm: Normal rate and regular rhythm. Pulmonary: Effort: Pulmonary effort is normal. Breath sounds: Normal breath sounds. Abdominal: General: Abdomen is flat. Palpations: Abdomen is soft. Musculoskeletal: General: Normal range of motion. Cervical back: Normal range of motion. Lumbar back: No spasms or tenderness. Skin: General: Skin is warm. Neurological: Mental Status: He is alert. Assessment/Plan Diagnoses and all orders for this visit: Essential hypertension Comments: Well controlled No meds Maintain a low-sodium diet (less than 2 grams per day). Maintain a regular cardiovascular exercise program. Advised to maintain a low-fat, low-cholesterol diet. Counseled regarding importance of weight loss. Counseled re: potential co-morbidities including cardiovascular disease. Dietary counseling Exercise counseling Hypercholesteremia Comments: Cont Fish oil and red yeast rice cap Labs ordered today Chronic gout of right foot, unspecified cause Comments: Stable No new Attacks documented in this encounter Plan of Treatment Not on file documented as of this encounter Visit Diagnoses Diagnosis Essential hypertension- Primary Unspecified essential hypertension Dietary counseling Dietary surveillance and counseling Exercise counseling Hypercholesteremia Pure hypercholesterolemia Chronic gout of right foot, unspecified cause Encounter for annual wellness visit documented in this encounter Additional Health Concerns Assessment Noted Time PHQ-9 Depression Total Score: 0 02/22/20 25 10:22 AM EDT documented as of this encounter Care Teams Battery Container Finishing Hand Relationship Specialty Start Date End Date Letty Huston MD [address] [place] [phone] PCP - General Family Medicine 09/08/12 documented as of this encounter
[2025-02-22 11:12] LABS: Alanine Aminotransferase 52 U/L (0-40); Albumin Level 4.9 g/dL (3.5-5.0); Alkaline Phosphatase 62 U/L (39-117); Anion Gap 12 (12-20); Aspartate Amino Transferase 29 U/L (5-37); Bilirubin Direct 0.2 mg/dL (0.0-0.5); Bilirubin Total 0.5 mg/dL (0.0-1.0); Blood Urea Nitrogen 23 mg/dL (9-16); Calcium 9.7 mg/dL (8.4-10.2); Carbon Dioxide 25 mmol/L (22-29); Chloride 109 mmol/L (96-108); Cholesterol 216 mg/dL (<200); Estimated Glomerular Filt Rate > 60; Glucose Random 102 mg/dL (60-115); HDL Cholesterol 42 mg/dL (>40); LDL Cholesterol Calculated 135 mg/dL (<100); Potassium 5.1 mmol/L (3.3-5.1); Sodium 141 mmol/L (135-145); Total Protein 7.5 g/dL (6.5-8.0); Triglycerides 199 mg/dL (<150)
== END 2025-02-22 09:39 | disposition home or self-care (01) ==
LOC: HO.CHCLDS 09:38
PROVIDERS: PCP Student in an Organized Health Care Education/Training Program; Referring Provider Internal Medicine Rheumatology; Visit Provider Student in an Organized Health Care Education/Training Program
DX: E78.00 Pure hypercholesterolemia, unspecified (principal); R74.01 Elevation of levels of liver transaminase levels
CPT/HCPCS: 36415; 80048; 80061; 80076

== ENCOUNTER 2025-07-03 12:47 | Outpatient (AMB) | payer MEDICAID, SELFPAY ==
--- NOTE | 2025-07-03 12:58 | A.OFFVIS_ITS ---
Vital Signs 07/03/25 12:59 Height 5 ft 7 in Weight 205 lb 4.006 oz BMI 32.1 BP 120/84 Blood Pressure Location Lt brachial Position Sitting Pulse 82 Pulse Source Pulse Oximeter Pulse Oximetry (%) 98 Oxygen Delivery Method Room Air Intake Visit Reasons: 6 Months Intake Note: Presents today for Gout follow up. Accompanied by: Self / Same As Patient Allergies No Known Allergies Allergy (Verified 07/03/25 12:59) HPI HPI 6 Months: Details: He has not had any gout attack. He feels well. He went to [place] in a month ago and had an alcoholic drink. Prior to his vacation, he stopped drinking after his last visit. He continues to take allopurinol 200 mg daily. He has pain in his right wrist and left 2nd and 3rd PIP. For the last 2 months he has had pain in his right medial knee. No injury associated with onset of pain. He has not self medicating. [facility] Medical History Carpal tunnel syndrome of left wrist Gout Surgical History History of carpal tunnel surgery Family History Mother No problems noted. Father No problems noted. Social History Alcohol intake: current Alcohol intake frequency: a few times a month Patient Tobacco Use Status: Never used Tobacco Current occupational status: employed Current occupation: rt hand/construction Physical Exam Vital Signs: Last Vital Signs Pulse 82 07/03/25 12:59 BP 120/84 07/03/25 12:59 Pulse Ox 98 07/03/25 12:59 Oxygen Delivery Method Room Air 07/03/25 12:59 BMI result Body Mass Index 32.1 Const Other: General: Comfortable CVS: RRR Respiratory: clear to auscultation bilaterally. Good respiratory effort Skin: No lesions seen MSK: Tender to palpate right 2nd and 3rd PIP and left wrist. No synovitis. Normal range of motion of upper extremities and lower extremities. Bilateral hallux valgus deformity left worse than right. Assessment & Plan Assessment & Plan (1) Gout: Comment: Controlled on allopurinol 200 mg daily. Goal uric acid is less than 6. Last uric acid was 6.2. 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 X-rays reveal bilateral radiocarpal joint narrowing. I have ordered further laboratory workup for inflammatory arthritis Code(s): M10.9 - Gout, unspecified Category: Medical Qualifiers: Chronicity: chronic Gout etiology: idiopathic Gout site: multiple sites Presence of tophus: without tophus Qualified Code(s): M1A.09X0 - Idiopathic chronic gout, multiple sites, without tophus (tophi) Plan: Continue allopurinol 200 mg daily Labs for disease and drug monitoring on allopurinol ordered. If he continues to have transaminitis, I will lower allopurinol 250 mg daily Requesting synovial fluid analysis from PCP's office (Dr. Mcintyre) of left MTP performed a year and a half ago x2 Return to clinic in 6 months (2) Right knee pain: Comment: He has localized pain to his proximal medial tibia Code(s): M25.561 - Pain in right knee Category: Medical Plan: X-ray of right knee ordered Return to clinic in 6 months (3) Oligoarthritis: Code(s): M13.80 - Other specified arthritis, unspecified site Category: Medical Plan: See above Orders: Orders Liver Panel Today R74.01 - Elevation of levels of liver transaminase levels Erythrocyte Sedimentation Rate Today M13.80 - Other specified arthritis, unspecified site, Z79.899 - Other middle or intermediate school principal (current) drug therapy C Reactive Protein Today M13.80 - Other specified arthritis, unspecified site, Z79.899 - Other middle or intermediate school principal (current) drug therapy Cyclic Citrullinated Peptide Today M13.80 - Other specified arthritis, unspecified site Rheumatoid Factor Today M13.80 - Other specified arthritis, unspecified site HLA B27 Today M13.80 - Other specified arthritis, unspecified site XR knee RT 2V Today M25.561 - Pain in right knee Coding Level of Care Code Est Pt Level 4 (62920) Complex EM visit Add On G2211 Diagnoses Idiopathic chronic gout of multiple sites without tophus M1A.09X0 Chronicity: chronic Gout etiology: idiopathic Gout site: multiple sites Presence of tophus: without tophus Right knee pain M25.561 Oligoarthritis M13.80
[2025-07-03 12:59] VITALS: BP 120/84; PULSE 82; O2SAT 98; BMI 32.1
--- OUTSIDE RECORDS SUMMARY | 2025-07-03 15:39 | XMS_ITS | Encounter Summary ---
Author Organization [employer] Address [address] [facility] [address] [place] [address] Care Team Providers Care Calender Worker Helper Name Role Phone Letty Huston MD Primary Care Provider [phone] Encounter Details Date Type Department Care Team (Latest Contact Info) Description 11/01/2018 Abstract [facility] CONVERSIONS Dental, Provider, DDS Social History Tobacco [...] on filedocumented in this encounter Care Teams Calender Worker Helper Relationship Specialty Start Date End Date Letty Huston MD [address] [place] [phone] PCP - General Family Medicine 09/08/12 documented as of this encounter
--- OUTSIDE RECORDS SUMMARY | 2025-07-03 15:39 | XMS_ITS | Encounter Summary ---
Author Organization [employer] Address [address] [place] [address] Care Team Providers Care Male Model Name Role Phone Letty Huston MD Primary Care Provider [phone] Encounter Details Date Type Department Care Team ([facility] st Contact Info) Description 12/30/2022 Orders Only [facility] [address] [place], [place] [phone] Letty Huston MD [address] [place] [address] Social History Tobacco Use Types Packs/Day Years [...] (12/30/2022 12:12 PM EDT) Color Urine Yellow [facility] Appearance Urine Clear [facility] PH 5.5 5.0 - 9.0 [facility] Glucose Urine UA Negative Negative mg/dL [facility] Urine Blood Negative Negative [facility] Specific [place] - Urine 1.020 1.005 - 1.025 [facility] Urine Protein Negative Neg-Trace mg/dL [facility] Urine Ketones Negative Negative mg/dL [facility] Nitrite Urine Negative Negative [facility] Leukocyte Esterase Urine Negative Negative [facility] RBC Urine 0-2 0 - 2 /HPF [facility] Urine WBC 0-5 0 - 5 /HPF [facility] Urine Squamous Epithelial Cell 0-2 0 - 2 /HPF [facility] Urine Bacteria None Seen None Seen [facility] Hyaline Casts, Urine 0-2 0 - 2 /LPF [facility] 12/30/2022 12:1 2 PM EDT 12/30/2022 1:44 PM EDT us [facility] External Provider LAB URI NE ORDERABLES Final Result [facility] [address] [place] [phone] * Sed Rate by Modified Shaneren (12/30/2022 12:07 PM EDT) Erythrocyte Sedimentation Rate 13 0 - 15 MM/HR [facility] Comment:Patients with polycy themia and many hemoglobin abnormalitiesmay have depressed sed rates whereas patients with anemiamay have elevated sed rates. 12/30/2022 12:0 7 PM EDT 12/30/2022 1:26 PM EDT us [facility] External Provider LAB BLO OD ORDERABLES Final Result [facility] [address] [place] [address] [phone] * (ABNORMAL) CBC auto differential (12/30/2022 12:07 PM EDT) White Blood Count 5.8 4.8 - 10.8 X10*3/uL [facility] Red Blood Count 5.27 4.60 - 5.80 X10*6/uL [facility] Hemoglobin 15.1 14.0 - 18.0 g/dl [facility] Hematocrit 44.7 42.0 - 52.0 % [facility] Mean Corpuscular Volume 84.8 80.0 - 98.0 fL [facility] Mean Corpuscular Hemoglobin 28.7 27.0 - 33.0 pg [facility] Mean Corpuscular HGB Conc 33.8 31.0 - 36.0 g/dl [facility] Red Cell Distribution Width 12.3 11.0 - 16.0 % [facility] Platelet Count 261 160 - 400 X10*3/uL [facility] Mean Platelet Volume 10.8 9.4 - 12.4 fL [facility] Neutrophils Percent Auto 52.9 45 - 73 % [facility] Imm Gran Pct Auto 0.2 0.0 - 0.4 % [facility] Lymphocytes Percent Auto 33.3 20 - 40 % [facility] Monocytes Percent Auto 11.2(H) 2 - 11 % [facility] Eosinophils Percent Auto 1.7 0 - 4 % [facility] Basophils Percent Auto 0.7 0 - 2 % [facility] NRBC Pct Auto 0.0 0.0 - 0.2 /100WBC [facility] Neutrophils Absolute Auto 3.1 2.0 - 8.3 x10*3/uL [facility] Imm Gran Abs Auto 0.01 0.00 - 0.03 X10*3/uL [facility] Lymphocytes Absolute Auto 1.9 1.2 - 4.9 X10*3/uL [facility] Monocytes Absolute Auto 0.7 0.1 - 1.2 X10*3/uL [facility] Eosinophils Absolute Auto 0.1 0.0 - 0.4 X10*3/uL [facility] Basophils Absolute Auto 0.0 0.0 - 0.2 X10*3/uL [facility] NRBC Abs Auto 0.000 0.0 - 0.012 X10*3/uL [facility] 12/30/2022 12:0 7 PM EDT 12/30/2022 1:26 PM EDT [facility] External Provider LAB BLO OD ORDERABLES Final Result Performing Organization Address City/[facility]/ZIP Co de Phone Number [facility] [address] [place] [address] [phone] * C-reactive Protein (12/30/2022 12:02 PM EDT) C Reactive Protein 0.38 < or = 0.50 mg/dL [facility] 12/30/2022 12:0 2 PM EDT 12/30/2022 1:26 PM EDT [facility] External Provider LAB BLO OD ORDERABLES Final Result Performing Organization Address City/[facility]/ZIP Co de Phone Number [facility] [address] [place] [phone] * Uric acid (12/30/2022 12:02 PM EDT) Uric Acid 6.4 3.4 - 7.0 mg/dL [facility] 12/30/2022 12:0 2 PM EDT 12/30/2022 1:26 PM EDT [facility] External Provider LAB BLO OD ORDERABLES Final Result [facility] [address] [place] [address] [phone] * Comprehensive Metabolic Panel (12/30/2022 12:02 PM EDT) Sodium 140 135 - 145 mmol/L [facility] Potassium 4.5 3.3 - 5.1 mmol/L [facility] Chloride 104 96 - 108 mmol/L [facility] Carbon Dioxide 26 22 - 29 mmol/L [facility] Anion Gap 15 12 - 20 [facility] Urea Nitrogen (BUN) 13 9 - 16 mg/dL [facility] Creatinine, Serum 0.87 0.5 - 1.4 mg/dL [facility] Estimated Glomerular Filt Rate >60 [facility] Comment:NOTE: For -Am erican individuals, multiply the result by 1.210.Chronic Kidney Disease: Estimated GFR < 60 mL/min/1.50g0Qevxom Kidney Disease: Estimated GFR < 15 mL/min/1.73m2 Glucose 95 60 - 115 mg/dL [facility] Calcium 9.8 8.4 - 10.2 mg/dL [facility] Bilirubin, Total 0.7 0.0 - 1.0 mg/dL [facility] Aspartate Amino Transferase 24 5 - 37 U/L [facility] Alanine Aminotransferase 31 0 - 40 U/L [facility] Total Protein 7.4 6.5 - 8.0 g/dL [facility] Albumin Level 4.8 3.5 - 5.0 g/dL [facility] Alkaline Phosphatase 65 39 - 117 U/L [facility] 12/30/2022 12:0 2 PM EDT 12/30/2022 1:26 PM EDT [facility] External Provider LAB BLO OD ORDERABLES Final Result [facility] [address] [place] [phone] [phone] documented in this encounter Visit Diagnoses Not on filedocumented in this encounter Care Teams Male Model Relationship Specialty Start Date End Date Letty Huston MD [address] [place] [phone] PCP - General Family Medicine 09/08/12 documented as of this encounter
--- OUTSIDE RECORDS SUMMARY | 2025-07-03 15:39 | XMS_ITS | Clinical Summary ---
Author Organization [employer] Address [address] [facility] [address] [place] [address] Care Team Providers Care Process Engineering Manager Name Role Phone Letty Huston MD Primary Care Provider [phone] Allergies No known active allergies Medications ibuprofen 800 MG tablet Take 1 tablet by mouth every 8 (eight) hours. 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 15 capsule 2 10/27/19 23 Active fish oil-omega-3 fatty acids 1000 MG capsule Take 1 capsule (1 g) by mouth 2 times daily. 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 purified surface antigen ) 06/19/2013 TD (adult), 2 Lf tetanus tox oid, preservative free, adsorbed 09/28/2007 Tdap 01/10/2025,02/19/2014 Social History Tobacco Use Types Packs/Day Years [...] 78 02/21/2025 10:21 AM EDT Temperature 36.6 C (97.9 F) 02/21/2025 10:21 AM EDT Respiratory Rate 18 02/21/2025 10:21 AM EDT Oxygen Saturation 95% 01/28/2024 10:19 AM EDT Inhaled Oxygen Concentration - - Weight 95.7 kg (211 lb) 02/21/2025 10:21 AM EDT Height 176.5 cm (5' 9.5 ) 02/21/2025 10:21 AM ED T Body Mass Index 30.71 02/21/2025 10:21 AM EDT Plan of Treatment Health Maintenance Due Date Last Done Comments CT Colonography 1976 Colonoscopy 1976 FIT 1976 HIV Screening 1976 Sigmoidoscopy 1976 Family Planning (PISQ) 02/28/1991 Hepatitis B Vaccines (1 of 3 - 19+ 3-dose series) 02/28/1995 FOBT 02/23/2025 02/24/2024 Dental Oral Exam 05/23/2025 11/22/2024, 01/2019, 04/26/2018, Additional history exists Dental Prophylaxis 05/23/2025 11/22/2024, 0 11/01/2018, 04/26/2018, Additional history exists COVID-19 Vaccine ( season) 2025 09/02/2021, 12/28/2020, 12/07/2020 Influenza Vaccine (#1) 2025 5, 06/26/2014, 06/19/2013, Additional history exists Dental X-Ray: Bitewings 11/23/2025 11/22/19 25, 06/15/2024, 04/26/2018, Additional history exists Alcohol/Substance Use Screening 01/10/2026 01/10/2025 Disability Screening 01/10/2026 01/10/2025 SDOH Screening 01/10/2026 01/10/2025 Depression Screening 02/21/2026 02/21/2025, 02/22/20 Tobacco Screening 02/21/2026 02/21/2025 Zoster Vaccines (1 of 2) 02/28/2026 Colorectal Cancer Screening 02/23/2027 FIT DNA/Cologuard 02/23/2027 02/24/2024 Dental X-Ray: Full Mouth 11/23/2027 11/22/2024, 06/27 Lipid Panel 02/22/2030 02/22/2025, 05/0 03/2024, 02/12/2021 DTaP/Tdap/Td Vaccines (3 - Td or Tdap) 01/10/2035 01/10/2025, 02/19/2014, 09/28/2007 RSV Patients and Patients Aged 60 years [...] patient's age to complete this topic Meningococcal B Vaccine Aged Out No l onger eligible based on patient's age to complete this topic Meningococcal Vaccine Aged Out No kristopher haley eligible based on patient's age to complete this topic Pneumococcal Vaccine: Pediatrics (0 to 5 Years) and At-Risk Patients (6 to 49) Years Aged Out No longer eligible based on patient's age to complete this topic RSV under 20 months Aged Out No longe r eligible based on patient's age to complete this topic Rotavirus Vaccines Aged Out No longer eligible based on patient's age to complete this topic Procedures Procedure Name Priority Date/Time Associated Diagnosis Comments LIPID PANEL, STANDARD Routine 02/22/2025 9:41 AM EDT Hypercholesteremia PROPHYLAXIS - ADULT Routine 11/22/2024 1 0:00 AM EST INTRAORAL - COMPLETE SERIES OF RADIOGRAPHIC IMAGES Routine 11/22/2024 10:00 AM EST PERIODIC ORAL EVALUATION - ESTABLISHED PATIENT Routine 11/22/2024 10:00 AM EST LAB COLOGUARD COLON CANCER SCREEN Routine 02/24/2024 12:15 PM EDT Encounter for screening for malignant neoplasm of colon HEPATITIS C AB W/REFL TO HCV RNA, QN, PCR Routine 02/01/2024 9:54 AM EDT PE (physical exam), annual from Last 3 Months or Most Recently Relevant to Health Maintenance Results * (ABNORMAL) Lipid Panel, Standard (02/22/2025 9:41 AM EDT) Triglycerides 199(H) <150 mg/dL [facility] Comment:Desirable Triglyceri de: less than 150 mg/dLBorderline High Triglyceride 150-199 mg/dLHigh Triglyceride: 200-499 mg/dLVery High Triglyceride: greater than or equal to 5OO mg/dL Cholesterol 216(H) <200 mg/dL [facility] Comment:Desirable Cholestero l: less than 200 mg/dLBorderline High Cholesterol: 200-239 mg/dLHigh Cholesterol: greater than 239 mg/dL LDL Cholesterol Calculated 135(H) <100 mg/dL [facility] Comment:Desirable LDL: less than 100 mg/dLNear Optimal/Above Optimal LDL: 110- 129 mg/dLBorderline High LDL: 130-159 mg/dLHigh LDL: 160-189 mg/dLVery High LDL: greater than or equal to 190 mg/dL HDL Cholesterol 42 >40 mg/dL [facility] Comment:Desirable HDL: great er than 40 mg/dL Note: This HDL assay may give artificially low results in patients with liver disease. Blood Venous blood specimen / Unknown 02/22/2025 9:41 AM EDT 02/22/2025 10:39 AM EDT Letty Huston MD LAB BLOOD ORDERABLES Final Resul t [facility] [address] [place] [phone] [phone] * Cologuard?? colon cancer screening (02/24/2024 12:15 PM EDT) Cologuard Result Negative Negative 03/01/20 5:40 PM EDT [employer] (CLIA #:[id number]) Comment: NEGATIVE TEST RESULT. A negative Cologuard result indicates a low likelihood that a colorectal cancer (CRC) or advanced adenoma (adenomatous polyps with more advanced pre-malignant features) is present. The chance that a person with a negative Cologuard test has a colorectal cancer is less than 1 in 1500 (negative predictive value >99.9%) or has an advanced adenoma is less than 5.3% (negative predictive value 94.7%). These data are based on a prospective cross-sectional study of 10,000 individuals at average risk for colorectal cancer who were screened with both Cologuard and colonoscopy. (Hermes Khoury et al, N Engl J Med 2014;370(14):9153-5799) The normal value (reference range) for this assay is negative. COLOGUARD RE-SCREENING RECOMMENDATION: Periodic colorectal cancer screening is an important part of preventive healthcare for asymptomatic individuals at average risk for colorectal cancer. Following a negative Cologuard result, the [place] [employer] and U.S. Multi-Society Task Force screening guidelines recommend a Cologuard re-screening interval of 3 years. References: [place] [employer] Guideline for Colorectal Cancer Screening: https://www.cancer.org/cancer/pzudr-ixcqqj-fqilsj/sfhoyvmvd-qekczdueb-vxukcga/ac s-rec ommendations.html.; Rajendra DK, Alexi CR, Emily ROMERO, Colorectal Cancer Screening: Recommendations for Physicians and Patients from the U.S. Multi-Society Task Force on Colorectal Cancer Screening , Am J Gastroenterology 2017; 112:9239-2413. TEST DESCRIPTION: Composite algorithmic analysis of stool DNA-biomarkers with hemoglobin immunoassay. Quantitative values of individual biomarkers are not [...] (Hermes Carballo al, N Engl J Med 2014;370(14):2838-9825.) Cologuard may produce a false negative or false positive result (no colorectal cancer or precancerous polyp present at colonoscopy follow up). A negative Cologuard test result does not guarantee the absence of CRC or advanced adenoma (pre-cancer). The current Cologuard screening interval is every 3 years. ([place] [employer] and U.S. Multi-Society Task Force). Cologuard performance data in a 10,000 patient pivotal study using colonoscopy as the reference method can be accessed at the following location: www.[employer].com/results. Additional description of the Cologuard test process, warnings and precautions can be found at www.[employer].com. Stool specimen (specimen) 02/24/2024 12:15 PM EDT 02/25/2024 1:42 PM EDT us Letty Huston MD LAB MOLECULAR DIAGNOSTICS ORDERA BLES Final Result [facility] (CLIA #:[id number]) [place] [address], * Hepatitis C Antibody with Reflex to HCV, RNA, Quantitative, Real-Time PCR (02/01/2024 9:54 AM EDT) Hepatitis C Antibody Nonreactive Nonreactive [facility] Comment:Antibodies to HCV no t detected; does not exclude early acuteHCV infection. Blood Venous blood specimen / Unknown 02/01/2024 9:54 AM EDT 02/01/2024 2:13 PM EDT us Letty Huston MD LAB BLOOD ORDERABLES Final Resul t [facility] [address] [place] [phone] [phone] from Last 3 Months or Most Recently Relevant to Health Maintenance Insurance [facility] C3 DENTAL-[facility] MEDICAID STAND ADULT Care Teams Process Engineering Manager Relationship Specialty Start Date End Date Letty Huston MD [address] [place] [phone] PCP - General Family Medicine 09/08/12
--- OUTSIDE RECORDS SUMMARY | 2025-07-03 15:39 | XMS_ITS | Encounter Summary ---
Author Organization [employer] Address [address] [place] [address] [address] [place] [address] Care Team Providers Care Dust Handler Name Role Phone Letty Huston MD Primary Care Provider Encounter Details Date Type Department Care Team ([facility] st Contact Info) Description 02/24/2023 [facility] Information Management [address] [place] [address] Letty Huston MD [address] [place], [place] [phone] Social History Tobacco Use Types Packs/Day Years [...] on filedocumented in this encounter Care Teams Dust Handler Relationship Specialty Start Date End Date Letty Huston MD [address] [place], [place] [phone] PCP - General Family Medicine 09/08/12 documented as of this encounter
== END 2025-07-03 13:33 | disposition home or self-care (01) ==
LOC: HO.RHES 12:47
PROVIDERS: PCP Student in an Organized Health Care Education/Training Program; Referring Provider Student in an Organized Health Care Education/Training Program; Visit Provider Internal Medicine Rheumatology
DX: M1A.09X0 Idiopathic chronic gout, multiple sites, without tophus (tophi) (principal); M25.561 Pain in right knee; M13.80 Other specified arthritis, unspecified site
CPT/HCPCS: 99214

== ENCOUNTER → 2025-07-03 12:47 | Outpatient (BNVA) | payer MEDICAID, SELFPAY | PROVIDERS: PCP Student in an Organized Health Care Education/Training Program; Visit Provider Internal Medicine Rheumatology | DX: M1A.09X0 Idiopathic chronic gout, multiple sites, without tophus (tophi) (principal); M25.561 Pain in right knee; M13.80 Other specified arthritis, unspecified site; Z79.899 Other long term (current) drug therapy | CPT/HCPCS: 99212 ==

== ENCOUNTER 2025-07-05 10:29 | Outpatient (REF) | payer MEDICAID, SELFPAY ==
--- NOTE | ~2025-07-05 | XR_ITS ---
EXAMINATION: XR KNEE 1-2 VIEWS RIGHT HISTORY: M25.561 - Pain in right knee COMPARISON: There are no prior studies available for comparison. FINDINGS: AP and lateral views of the right knee are submitted. Osseous mineralization is normal. There is no fracture or dislocation. The joint spaces are preserved. The soft tissues are unremarkable. There is no joint effusion. XR/XR knee RT 2V IMPRESSION: Unremarkable examination of the right knee. Electronically signed by: Norman Stearns MD 07/05/2025 10:47 AM EDT
[2025-07-05 17:08] LABS: Alanine Aminotransferase 37 U/L (0-40); Albumin Level 5.0 g/dL (3.5-5.0); Alkaline Phosphatase 59 U/L (39-117); Anion Gap 15 (12-20); Aspartate Amino Transferase 28 U/L (5-37); Blood Urea Nitrogen 14 mg/dL (9-16); Calcium 10.1 mg/dL (8.4-10.2); Carbon Dioxide 27 mmol/L (22-29); Chloride 106 mmol/L (96-108); Cholesterol 204 mg/dL (<200); Estimated Glomerular Filt Rate > 60; HDL Cholesterol 42 mg/dL (>40); Potassium 5.2 mmol/L (3.3-5.1); Sodium 143 mmol/L (135-145); Total Protein 7.9 g/dL (6.5-8.0); Triglycerides 143 mg/dL (<150); Uric Acid 6.7 mg/dL (3.4-7.0)
[2025-07-11 08:13] LABS: HLA B27 Negative (Negative)
== END 2025-07-05 10:30 | disposition home or self-care (01) ==
LOC: HO.HMGCX 10:29
PROVIDERS: Absent Provider Internal Medicine Rheumatology; PCP Student in an Organized Health Care Education/Training Program; Visit Provider Student in an Organized Health Care Education/Training Program
DX: M1A.4710 Other secondary chronic gout, right ankle and foot, without tophus (tophi) (principal); E78.00 Pure hypercholesterolemia, unspecified; M13.80 Other specified arthritis, unspecified site; M25.561 Pain in right knee; Z79.899 Other long term (current) drug therapy
CPT/HCPCS: 36415; 73560; 80048; 80061; 80076; 84550; 85652; 86140; 86200; 86431; 86812

== ENCOUNTER → 2025-07-05 10:32 | Outpatient (BNV) | payer MEDICAID, SELFPAY | PROVIDERS: Absent Provider Internal Medicine Rheumatology; PCP Student in an Organized Health Care Education/Training Program; Visit Provider Radiology Diagnostic Radiology | DX: M25.561 Pain in right knee (principal) | CPT/HCPCS: 73560 ==